=== PATIENT | female | born 1945 | race Hispanic/Latino ===

== ENCOUNTER 2021-11-17 06:49 | Inpatient (IN) | payer MEDICARE ==
[2021-11-17] MEDS ORDERED: KETOROLAC 30 MG/1 ML INJ IV ONE (07:18)
--- NOTE | 2021-11-17 07:32 | Emergency Department Report ---
ED Abdominal Pain HPI - General Stated Complaint: NAUSEA/VOMITING PUI?: No Time Seen by Provider: 11/17/21 07:16 Source: patient, EMS, old records reviewed Mode of arrival: Stretcher Limitations: No Limitations - History of Present Illness Initial Comments: Chief complaint: Abdominal pain HPI: This is a 76-year-old female with history of small bowel obstruction, gastric ulcer, COPD, chronic back pain who presents with nausea vomiting severe abdominal pain for the last 3 days. Patient's pain is 11 out of 10 in severity. Central difficult to describe. Last bowel movement 3 days ago. Has had persistent nausea vomiting. Arrives via EMS. Patient receives care through pain management clinic. Surgical history includes hysterectomy and cholecyst ectomy. MD Complaint: abdominal pain -: Gradual, days(s) (3 days) Location: diffuse Radiation: none Migration to: no migration Severity: severe Severity scale (0 -10): 10 (11 out of 10) Quality: aching, dull Consistency: constant Improves With: nothing Worsens With: nothing Context: other (History of bowel obstruction history of peptic ulcer disease) Associated Symptoms: nausea, vomiting, constipation Treatments Prior to Arrival: other (EMS transport) - Related Data Home Medications Medication Instructions Recorded Confirmed Last Taken Oxycodone HCl/Acetaminophen 1 each PO Q6HR PRN 10/28/14 10/28/14 Unknown [Percocet 10/325 mg] Tiotropium [Spiriva] 18 mcg IH QDAY 10/28/14 10/28/14 Unknown traZODone [Desyrel] 50 mg PO QHS 10/28/14 10/28/14 Unknown Previous Rx's Medication Instructions Recorded Last Taken Type Morphine [Morphine TAB] 30 mg PO BID #30 tablet 11/01/14 Unknown Rx Oxycodone HCl/Acetaminophen 1 each PO Q6H PRN #15 tablet 11/01/14 Unknown Rx [Roxicet 5-325 mg] Pantoprazole [Protonix TAB] 40 mg PO QDAY #30 tablet 11/01/14 Unknown Rx chlordiazePOXIDE/CLIDINIUM (NF 1 cap PO AC #60 capsule 11/01/14 Unknown Rx [Librax 5-2.5 mg (Nf)] clonazePAM [KlonoPIN] 0.5 mg PO BID PRN #30 tablet 11/01/14 Unknown Rx Allergies Allergy/AdvReac Type Severity Reaction Status Date / Time prochlorperazine edisylate AdvReac Swelling Verified 11/17/21 07:25 [From Compazine] prochlorperazine maleate AdvReac Swelling Verified 11/17/21 07:25 [From Compazine] ED Review of Systems ROS: Stated complaint: NAUSEA/VOMITING Other details as noted in HPI Comment: All other systems reviewed and negative Constitutional: denies: chills, fever, malaise Respiratory: denies: cough, shortness of breath Cardiovascular: denies: chest pain Gastrointestinal: abdominal pain, nausea, vomiting, constipation Musculoskeletal: back pain ED Past Medical Hx - Past Medical History Previous Medical History?: Yes Hx COPD: Yes Additional medical history: Peptic ulcer disease, checking for hep C, domant hep B - Surgical History Past Surgical History?: Yes Hx Cholecystectomy: Yes Additional Surgical History: Hysterectomy - Family History Family history: no significant - Social History Smoking Status: Current Some Day Smoker Substance Use Type: Alcohol - Medications Home Medications: Home Medications Medication Instructions Recorded Confirmed Last Taken Type Oxycodone HCl/Acetaminophen 1 each PO Q6HR PRN 10/28/14 10/28/14 Unknown History [Percocet 10/325 mg] Tiotropium [Spiriva] 18 mcg IH QDAY 10/28/14 10/28/14 Unknown History traZODone [Desyrel] 50 mg PO QHS 10/28/14 10/28/14 Unknown History Morphine [Morphine TAB] 30 mg PO BID #30 tablet 11/01/14 Unknown Rx Oxycodone HCl/Acetaminophen 1 each PO Q6H PRN #15 tablet 11/01/14 Unknown Rx [Roxicet 5-325 mg] Pantoprazole [Protonix TAB] 40 mg PO QDAY #30 tablet 11/01/14 Unknown Rx chlordiazePOXIDE/CLIDINIUM (NF 1 cap PO AC #60 capsule 11/01/14 Unknown Rx [Librax 5-2.5 mg (Nf)] clonazePAM [KlonoPIN] 0.5 mg PO BID PRN #30 tablet 11/01/14 Unknown Rx ED Physical Exam - General Limitations: No Limitations General appearance: alert, in no apparent distress - Head Head exam: Present: atraumatic, normocephalic - Eye Eye exam: Present: normal appearance - ENT ENT exam: Present: mucous membranes moist - Neck Neck exam: Present: normal inspection, full ROM - Respiratory Respiratory exam: Present: normal lung sounds bilaterally. Absent: respiratory distress, wheezes, rales, rhonchi - Cardiovascular Cardiovascular Exam: Present: regular rate, normal rhythm, normal heart sounds. Absent: systolic murmur, diastolic murmur, rubs, gallop - GI/Abdominal GI/Abdominal exam: Present: soft, normal bowel sounds. Absent: distended, tenderness, guarding, rebound - Extremities Exam Extremities exam: Present: normal inspection - Back Exam Back exam: Present: normal inspection - Neurological Exam Neurological exam: Present: alert, oriented X3 - Psychiatric Psychiatric exam: Present: normal affect, normal mood - Skin Skin exam: Present: warm, dry, intact, normal color. Absent: rash ED Medical Decision Making - Lab Data Result diagrams: 11/17/21 07:42 11/17/21 07:35 - Radiology Data Radiology results: report reviewed Patient Name: SCOTT RIDER Gender: Female Date of : 1945 Referring Provider: MARK DOUGLAS Organization: [facility] Accession Number: [id number] Requested Date: November 17, 2021 07:17 Report Status: Final Requested Procedure: 1 Procedure Description: CT abdomen pelvis w con Modality: CT Findings Reporting MD: Micheal Dugan Dictation Time: November 17, 2021 07:51 Digital Account Manager: Not available Practical Nurse Date: CT ABDOMEN AND PELVIS WITH CONTRAST HISTORY: Abdominal Pain hx of bowel obstruction 100 ml omni 300 . COMPARISON: 10/28/2014 TECHNIQUE: Helical CT images of the abdomen and pelvis were obtained following administration of intravenous contrast. Sagittal and coronal reformatted images were reviewed. All CT scans at this location are performed using CT dose reduction for ALARA by means of automated exposure control. CONTRAST: 100 ml of Omnipaque 300 intravenous contrast administered. FINDINGS: Abdomen/pelvis: Multiple dilated loops of small bowel with large air-fluid levels are present throughout the abdomen. The terminal ileum and colon are decompressed. There is no evidence for ascites, fluid collection or free air. The gallbladder has been surgically removed. There is mild diffuse biliary prominence without obstructing lesion which is likely secondary to reservoir effect following cholecystectomy. The pancreas, spleen, adrenal glands, kidneys, vascular structures and bladder are unremarkable. Hysterectomy changes are noted. Lungs/bones: The lung bases are clear. The bony structures are osteopenic with degenerative changes in the lumbar spine. There is moderate levocurvature of the lumbar spine. IMPRESSION: Moderate to high-grade distal small bowel obstruction. Signer Name: Micheal Dugan Jr, MD Signed: 11/17/2021 7:51 AM Workstation Name: [id number] - Medical Decision Making Small Bowel Obstruction: Dr. Reyes consulted. Admitted to hospitalist service. WBC 17K Critical care attestation.: If time is entered above; I have spent that time in minutes in the direct care of this critically ill patient, excluding procedure time. ED Disposition Clinical Impression: Small bowel obstruction Disposition: ADMITTED INPATIENT Is pt being admited?: Yes Does the pt Need Aspirin: No Condition: Stable
[2021-11-17 07:53] LABS: Hematocrit 50.5 % (30.3-42.9); Hemoglobin 17.1 gm/dl (10.1-14.3); Mean Corpuscular HGB Conc 34 % (30-34); Mean Corpuscular Volume 100 fl (79-97); Platelet Count 271 K/mm3 (140-440); Red Blood Count 5.03 M/mm3 (3.65-5.03); Red Cell Distribution Width 13.2 % (13.2-15.2)
[2021-11-17 08:06] LABS: Albumin 5.3 g/dL (3.9-5); Bilirubin,Direct 0.3 mg/dL (0-0.2); Calcium 11.9 mg/dL (8.4-10.2)
[2021-11-17 08:25] LABS: Total Cells Counted 100
[2021-11-17 08:26] LABS: Basophils % (Manual) 0 % (0.0-1.8); Eosinophils % (Manual) 0 % (0.0-4.3); RBC Morphology Normal
[2021-11-17 08:27] LABS: Platelet Estimate Consistent w Auto
--- NOTE | 2021-11-17 08:56 | Cat Scan Report ---
CT ABDOMEN AND PELVIS WITH CONTRAST HISTORY: Abdominal Pain hx of bowel obstruction 100 ml omni 300 . COMPARISON: 10/28/2014 TECHNIQUE: Helical CT images of the abdomen and pelvis were obtained following administration of intr avenous contrast. Sagittal and coronal reformatted images were reviewed. [facility] using CT dose reduction for ALARA by means of automated exposure control. CONTRAST: 100 ml of Omnipaque 300 intravenous contrast administered. FINDINGS: Abdomen/pelvis: Multiple dilated loops of small bowel with large air-fluid levels are present throug hout the abdomen. The terminal ileum and colon are decompressed. There is no evidence for ascites, fl uid collection or free air. The gallbladder has been surgically removed. There is mild diffuse biliary prominence without obstruc ting lesion which is likely secondary to reservoir effect following cholecystectomy. The pancreas, sp demetrio, adrenal glands, kidneys, vascular structures and bladder are unremarkable. Hysterectomy changes are noted. Lungs/bones: The lung bases are clear. The bony structures are osteopenic with degenerative changes in the lumbar spine. There is moderate levocurvature of the lumbar spine. IMPRESSION: Moderate to high-grade distal small bowel obstruction. Signer Name: Micheal Dugan Jr, MD Signed: 11/17/2021 8:51 AM Workstation Name: [id number]
--- NOTE | 2021-11-17 09:32 | Consultation ---
History of Present Illness Consult date: 11/17/21 Reason for consult: abdominal pain - History of present illness History of present illness: This is a 76-year-old female with history of small bowel obstruction, gastric ulcer, COPD, chronic back pain who presents with nausea vomiting severe abdominal pain for the last 3 days. Patient's pain is 11 out of 10 in severity. Pain location is Central difficult to describe. Last bowel movement 3 days ago. Has had persistent nausea vomiting. Arrives via EMS. Patient receives care through pain management clinic. Surgical history includes hysterectomy and cholecystectomy. CT scan reviewed and shows entire small bowel to be distended. Colon is collapsed. stomach is distended. Medications and Allergies Allergies Allergy/AdvReac Type Severity Reaction Status Date / Time prochlorperazine edisylate AdvReac Swelling Verified 11/17/21 07:25 [From Compazine] prochlorperazine maleate AdvReac Swelling Verified 11/17/21 07:25 [From Compazine] Home Medications Medication Instructions Recorded Confirmed Last Taken Type Oxycodone HCl/Acetaminophen 1 each PO Q6HR PRN 10/28/14 11/17/21 11/15/21 12:00 History [Percocet 10/325 mg] Tiotropium [Spiriva] 18 mcg IH QDAY 10/28/14 11/17/21 11/10/21 15:00 History traZODone [Desyrel] 50 mg PO QHS 10/28/14 11/17/21 11/03/21 09:00 History Morphine [Morphine TAB] 30 mg PO BID #30 tablet 11/01/14 11/17/21 11/15/21 12:00 Rx Oxycodone HCl/Acetaminophen 1 each PO Q6H PRN #15 tablet 11/01/14 11/17/21 11/15/21 12:00 Rx [Roxicet 5-325 mg] Pantoprazole [Protonix TAB] 40 mg PO QDAY #30 tablet 11/01/14 11/17/21 11/15/21 12:00 Rx chlordiazePOXIDE/CLIDINIUM (NF 1 cap PO AC #60 capsule 11/01/14 11/17/21 11/15/21 12:00 Rx [Librax 5-2.5 mg (Nf)] clonazePAM [KlonoPIN] 0.5 mg PO BID PRN #30 tablet 11/01/14 11/17/21 11/17/21 12:00 Rx Promethazine [Phenergan] 25 mg PO Q6HR PRN 11/17/21 11/17/21 11/14/21 18:00 History Exam - General physical appearance Positive: well developed, no distress - Neck Positive: no masses, no bruits, trachea midline - Respiratory Positive: normal expansion - Cardiovascular Rhythm: regular - Extremities Extremities: no ischemia, No edema - Breasts Breasts: normal - Abdomen Abdomen: Present: soft, tender. Absent: distended, masses, rebound Hernia: none - Neurologic Neurologic: alert and oriented to time, place and person, motor strength and sensation are grossly intact, CN II-XII intact Results - Labs 11/18/21 07:18 11/18/21 07:18 Abnormal lab results 11/17/21 11/17/21 Range/Units 07:35 07:42 WBC 17.2 H (4.5-11.0) K/mm3 Hgb 17.1 H (10.1-14.3) gm/dl Hct 50.5 H (30.3-42.9) % MCV 100 H (79-97) fl MCH 34 H (28-32) pg Seg Neuts % (Manual) 93.0 H (40.0-70.0) % Lymphocytes % (Manual) 5.0 L (13.4-35.0) % Seg Neutrophils # Man 16.0 H (1.8-7.7) K/mm3 Lymphocytes # (Manual) 0.9 L (1.2-5.4) K/mm3 Sodium 136 L (137-145) mmol/L Chloride 94.7 L (98-107) mmol/L Glucose 174 H (65-100) mg/dL Calcium 11.9 H (8.4-10.2) mg/dL Direct Bilirubin 0.3 H (0-0.2) mg/dL Total Protein 8.9 H (6.3-8.2) g/dL Albumin 5.3 H (3.9-5) g/dL Diabetes panel 11/17/21 Range/Units 07:35 Sodium 136 L (137-145) mmol/L Potassium 3.6 (3.6-5.0) mmol/L Chloride 94.7 L (98-107) mmol/L Carbon Dioxide 23 (22-30) mmol/L BUN 17 (7-17) mg/dL Creatinine 1.1 (0.6-1.2) mg/dL Glucose 174 H (65-100) mg/dL Calcium 11.9 H (8.4-10.2) mg/dL AST 15 (5-40) units/L ALT 8 (7-56) units/L Alkaline Phosphatase 52 (35-129) units/L Total Protein 8.9 H (6.3-8.2) g/dL Albumin 5.3 H (3.9-5) g/dL Calcium panel 11/17/21 Range/Units 07:35 Calcium 11.9 H (8.4-10.2) mg/dL Albumin 5.3 H (3.9-5) g/dL Pituitary panel 11/17/21 Range/Units 07:35 Sodium 136 L (137-145) mmol/L Potassium 3.6 (3.6-5.0) mmol/L Chloride 94.7 L (98-107) mmol/L Carbon Dioxide 23 (22-30) mmol/L BUN 17 (7-17) mg/dL Creatinine 1.1 (0.6-1.2) mg/dL Glucose 174 H (65-100) mg/dL Calcium 11.9 H (8.4-10.2) mg/dL Adrenal panel 11/17/21 Range/Units 07:35 Sodium 136 L (137-145) mmol/L Potassium 3.6 (3.6-5.0) mmol/L Chloride 94.7 L (98-107) mmol/L Carbon Dioxide 23 (22-30) mmol/L BUN 17 (7-17) mg/dL Creatinine 1.1 (0.6-1.2) mg/dL Glucose 174 H (65-100) mg/dL Calcium 11.9 H (8.4-10.2) mg/dL Total Bilirubin 1.00 (0.1-1.2) mg/dL AST 15 (5-40) units/L ALT 8 (7-56) units/L Alkaline Phosphatase 52 (35-129) units/L Total Protein 8.9 H (6.3-8.2) g/dL Albumin 5.3 H (3.9-5) g/dL Assessment and Plan CT abdo with small bowel obstruction. Pt with prior surgrey. Patient notes that hysterectomy was complicated with a bowel injury. She also notes that she has had several prior admissions for bowel obstruction secondary to adhesions manag ed conservatively. NG tube was not able be replaced through the night. Patient continues to have l ack of flatus lack of BM. Would continue to try to replace the NG. Place NG, IVF, serial examines. thanks for your consultation.
[2021-11-17] MEDS ORDERED: MORPHINE 4 MG/1 ML INJ IV ONE (09:37)
--- NOTE | 2021-11-17 11:44 | History and Physical Report ---
History of Present Illness Date of examination: 11/17/21 Date of admission: 11/17/2021 Chief complaint: Abdominal pain with nausea and vomiting History of present illness: The patient is a 76-year-old female past medical history of small bowel obstruction, gastric ulcer, COPD, and chronic back pain (follows with pain management clinic) who presented with nausea, vomiting, and severe abdominal pain that is progressed over the previous 3 days. The patient currently describes her abdominal pain as 11/10 in severity. The patient describes her last bowel movement being approximately 3 days ago. The patient was found to be hemodynamically stable and on room air. Further lab results revealed leukocytosis of 17.[address] abdomen and pelvis with contrast revealed a moderate to high-grade distal small bowel obstruction. General surgery was consulted for further management. The patient is being admitted to the medicine service for management of small bowel obstruction. Past History Past Medical History: COPD, other (Gastric ulcer; history of small bowel obstruction; chronic pain) Past Surgical History: cholecystectomy Family history: hypertension Medications and Allergies Allergies Allergy/AdvReac Type Severity Reaction Status Date / Time prochlorperazine edisylate AdvReac Swelling Verified 11/17/21 07:25 [From Compazine] prochlorperazine maleate AdvReac Swelling Verified 11/17/21 07:25 [From Compazine] Home Medications Medication Instructions Recorded Confirmed Last Taken Type Oxycodone HCl/Acetaminophen 1 each PO Q6HR PRN 10/28/14 11/17/21 11/15/21 12:00 History [Percocet 10/325 mg] Tiotropium [Spiriva] 18 mcg IH QDAY 10/28/14 11/17/21 11/10/21 15:00 History traZODone [Desyrel] 50 mg PO QHS 10/28/14 11/17/21 11/03/21 09:00 History Morphine [Morphine TAB] 30 mg PO BID #30 tablet 11/01/14 11/17/21 11/15/21 12:00 Rx Oxycodone HCl/Acetaminophen 1 each PO Q6H PRN #15 tablet 11/01/14 11/17/21 11/15/21 12:00 Rx [Roxicet 5-325 mg] Pantoprazole [Protonix TAB] 40 mg PO QDAY #30 tablet 11/01/14 11/17/21 11/15/21 12:00 Rx chlordiazePOXIDE/CLIDINIUM (NF 1 cap PO AC #60 capsule 11/01/14 11/17/21 11/15/21 12:00 Rx [Librax 5-2.5 mg (Nf)] clonazePAM [KlonoPIN] 0.5 mg PO BID PRN #30 tablet 11/01/14 11/17/21 11/17/21 12:00 Rx Promethazine [Phenergan] 25 mg PO Q6HR PRN 11/17/21 11/17/21 11/14/21 18:00 History Exam - Constitutional Vitals: Temp Pulse Resp BP Pulse Ox 96 H 14 171/81 96 11/17/21 10:07 11/17/21 10:07 11/17/21 10:07 11/17/21 10:07 General appearance: Present: severe distress, well-nourished - EENT Eyes: Present: PERRL, EOM intact ENT: hearing intact, clear oral mucosa, edentulous - Neck Neck: Present: supple, normal ROM - Respiratory Respiratory effort: normal Respiratory: bilateral: CTA - Cardiovascular Rhythm: regular Heart Sounds: Present: S1 & S2 - Extremities Extremities: no ischemia, pulses intact, pulses symmetrical, No edema, normal temperature, normal color, Full ROM Peripheral Pulses: within normal limits - Abdominal General gastrointestinal: Present: soft, tender, non-distended, hypoactive bowel sounds Localized gastrointestinal: tender: RLQ, suprapubic Female genitourinary: Present: deferred - Rectal Rectal Exam: deferred - Integumentary Integumentary: Present: clear, warm, dry - Musculoskeletal Musculoskeletal: strength equal bilaterally - Psychiatric Psychiatric: appropriate mood/affect, cooperative - Neurologic Neurologic: CNII-XII intact, moves all extremities - Allied Health Allied health notes reviewed: nursing Results - Labs CBC & Chem 7: 11/18/21 07:18 11/18/21 07:18 Labs: Laboratory Last Values WBC 17.2 K/mm3 (4.5-11.0) H 11/17/21 07:42 RBC 5.03 M/mm3 (3.65-5.03) 11/17/21 07:42 Hgb 17.1 gm/dl (10.1-14.3) H 11/17/21 07:42 Hct 50.5 % (30.3-42.9) H 11/17/21 07:42 MCV 100 fl (79-97) H 11/17/21 07:42 MCH 34 pg (28-32) H 11/17/21 07:42 MCHC 34 % (30-34) 11/17/21 07:42 RDW 13.2 % (13.2-15.2) 11/17/21 07:42 Plt Count 271 K/mm3 (140-440) 11/17/21 07:42 Add Manual Diff Complete 11/17/21 07:42 Total Counted 100 11/17/21 07:42 Seg Neutrophils % [place] Loader 11/17/21 07:42 Seg Neuts % (Manual) 93.0 % (40.0-70.0) H 11/17/21 07:42 Band Neutrophils % 0 % 11/17/21 07:42 Lymphocytes % (Manual) 5.0 % (13.4-35.0) L 11/17/21 07:42 Reactive Lymphs % (Man) 0 % 11/17/21 07:42 Monocytes % (Manual) 2.0 % (0.0-7.3) 11/17/21 07:42 Eosinophils % (Manual) 0 % (0.0-4.3) 11/17/21 07:42 Basophils % (Manual) 0 % (0.0-1.8) 11/17/21 07:42 Metamyelocytes % 0 % 11/17/21 07:42 Myelocytes % 0 % 11/17/21 07:42 Promyelocytes % 0 % 11/17/21 07:42 Blast Cells % 0 % 11/17/21 07:42 Nucleated RBC % Not Reportable 11/17/21 07:42 Seg Neutrophils # Man 16.0 K/mm3 (1.8-7.7) H 11/17/21 07:42 Band Neutrophils # 0.0 K/mm3 11/17/21 07:42 Lymphocytes # (Manual) 0.9 K/mm3 (1.2-5.4) L 11/17/21 07:42 Abs React Lymphs (Man) 0.0 K/mm3 11/17/21 07:42 Monocytes # (Manual) 0.3 K/mm3 (0.0-0.8) 11/17/21 07:42 Eosinophils # (Manual) 0.0 K/mm3 (0.0-0.4) 11/17/21 07:42 Basophils # (Manual) 0.0 K/mm3 (0.0-0.1) 11/17/21 07:42 Metamyelocytes # 0.0 K/mm3 11/17/21 07:42 Myelocytes # 0.0 K/mm3 11/17/21 07:42 Promyelocytes # 0.0 K/mm3 11/17/21 07:42 Blast Cells # 0.0 K/mm3 11/17/21 07:42 WBC Morphology Not Reportable 11/17/21 07:42 Hypersegmented Neuts Not Reportable 11/17/21 07:42 Hyposegmented Neuts Not Reportable 11/17/21 07:42 Hypogranular Neuts Not Reportable 11/17/21 07:42 Smudge Cells Not Reportable 11/17/21 07:42 Toxic Granulation Not Reportable 11/17/21 07:42 Toxic Vacuolation Not Reportable 11/17/21 07:42 Dohle Bodies Not Reportable 11/17/21 07:42 Pelger-Huet Anomaly Not Reportable 11/17/21 07:42 Rekha Rods Not Reportable 11/17/21 07:42 Platelet Estimate Consistent w auto 11/17/21 07:42 Clumped Platelets Not Reportable 11/17/21 07:42 Plt Clumps, EDTA Not Reportable 11/17/21 07:42 Large Platelets Not Reportable 11/17/21 07:42 Giant Platelets Not Reportable 11/17/21 07:42 Platelet Satelliting Not Reportable 11/17/21 07:42 Plt Morphology Comment Not Reportable 11/17/21 07:42 RBC Morphology Normal 11/17/21 07:42 Dimorphic RBCs Not Reportable 11/17/21 07:42 Polychromasia Not Reportable 11/17/21 07:42 Hypochromasia Not Reportable 11/17/21 07:42 Poikilocytosis Not Reportable 11/17/21 07:42 Anisocytosis Not Reportable 11/17/21 07:42 Microcytosis Not Reportable 11/17/21 07:42 Macrocytosis Not Reportable 11/17/21 07:42 Spherocytes Not Reportable 11/17/21 07:42 Pappenheimer Bodies Not Reportable 11/17/21 07:42 Sickle Cells Not Reportable 11/17/21 07:42 Target Cells Not Reportable 11/17/21 07:42 Tear Drop Cells Not Reportable 11/17/21 07:42 Ovalocytes Not Reportable 11/17/21 07:42 Helmet Cells Not Reportable 11/17/21 07:42 Maza-[place] Bodies Not Reportable 11/17/21 07:42 [place] Rings Not Reportable 11/17/21 07:42 Boutte Cells Not Reportable 11/17/21 07:42 Bite Cells Not Reportable 11/17/21 07:42 Crenated Cell Not Reportable 11/17/21 07:42 Elliptocytes Not Reportable 11/17/21 07:42 Acanthocytes (Spur) Not Reportable 11/17/21 07:42 Rouleaux Not Reportable 11/17/21 07:42 Hemoglobin C Crystals Not Reportable 11/17/21 07:42 Schistocytes Not Reportable 11/17/21 07:42 Malaria parasites Not Reportable 11/17/21 07:42 Behzad Bodies Not Reportable 11/17/21 07:42 Hem Pathologist Commnt No 11/17/21 07:42 Sodium 136 mmol/L (137-145) L 11/17/21 07:35 Potassium 3.6 mmol/L (3.6-5.0) 11/17/21 07:35 Chloride 94.7 mmol/L (98-107) L 11/17/21 07:35 Carbon Dioxide 23 mmol/L (22-30) 11/17/21 07:35 Anion Gap 22 mmol/L 11/17/21 07:35 BUN 17 mg/dL (7-17) 11/17/21 07:35 Creatinine 1.1 mg/dL (0.6-1.2) 11/17/21 07:35 Estimated GFR 48 ml/min 11/17/21 07:35 BUN/Creatinine Ratio 15 % 11/17/21 07:35 Glucose 174 mg/dL (65-100) H 11/17/21 07:35 Calcium 11.9 mg/dL (8.4-10.2) H 11/17/21 07:35 Total Bilirubin 1.00 mg/dL (0.1-1.2) 11/17/21 07:35 Direct Bilirubin 0.3 mg/dL (0-0.2) H 11/17/21 07:35 Indirect Bilirubin 0.7 mg/dL 11/17/21 07:35 AST 15 units/L (5-40) 11/17/21 07:35 ALT 8 units/L (7-56) 11/17/21 07:35 Alkaline Phosphatase 52 units/L (35-129) 11/17/21 07:35 Total Protein 8.9 g/dL (6.3-8.2) H 11/17/21 07:35 Albumin 5.3 g/dL (3.9-5) H 11/17/21 07:35 Albumin/Globulin Ratio 1.5 % 11/17/21 07:35 Lipase 13 units/L (13-60) 11/17/21 07:35 Assessment and Plan Assessment and plan: The patient is a 76-year-old female past medical history of small bowel obstruction, gastric ulcer, COPD, and chronic back pain (follows with pain management clinic) who presented with nausea, vomiting, and severe abdominal pain that is progressed over the previous 3 days. The patient currently describes her abdominal pain as 11/10 in severity. The patient describes her last bowel movement being approximately 3 days ago. The patient was found to be hemodynamically stable and on room air. Further lab results revealed leukocytosis of 17.[address] abdomen and pelvis with contrast revealed a moderate to high-grade distal small bowel obstruction. General surgery was consulted for further management. The patient is being admitted to the medicine service for management of small bowel obstruction. #Distal small bowel obstruction #SIRS #Leukocytosis Heart rate 96, WBC 17.2 CT abdomen/pelvis with contrast revealing moderate to high-grade distal SBO General surgery consulted; appreciate recs Ordering NG tube placement with low intermittent wall suction, IV fluid resuscitation, and serial KUBs. The patient will be n.p.o. until resolution of small bowel obstruction. Continue to monitor #History of gastric ulcer Continue IV PPI; patient normally takes Protonix at home #COPD Continue DuoNebs and albuterol nebs as needed #Hypercalcemia Calcium 11.9 Likely secondary to decreased volume status and possible hemo-concentration Continue IV fluid resuscitation. Monitor with repeat labs. #Advanced care planning -Disease education conducted, care plan discussed, diagnoses discussed, prognosis discussed, and patient acknowledges understanding with care plan -Time: +30 min VTE prophylaxis?: Chemical Plan of care discussed with patient/family: Yes
[2021-11-17] MEDS: MORPHINE 2 MG/1 ML INJ IV PRN ×2 (13:43→21:43)
[2021-11-17] MEDS: IPRATROPIUM/ALBUTEROL SULFATE 3 ML AMPUL.NEB IH SCH ×2 (14:24→20:59)
[2021-11-17] MEDS: ACETAMINOPHEN 325 MG TAB PO PRN (21:43)
[2021-11-17] MEDS: PANTOPRAZOLE 40 MG INJ IV SCH (21:44)
[2021-11-17] MEDS: HEPARIN 5,000 UNIT/1 ML VIAL SUB-Q SCH (21:46)
[2021-11-18] MEDS: D5W/0.9% NACL 1,000 ML IV SCH ×2 (03:46→16:19)
[2021-11-18 07:36] LABS: Basophils % (Auto) 0.3 % (0.0-1.8); Eosinophils % (Auto) 0.3 % (0.0-4.3); Hematocrit 40.9 % (30.3-42.9); Hemoglobin 14.3 gm/dl (10.1-14.3); Lymphocytes # (Auto) 1.4 K/mm3 (1.2-5.4); Mean Corpuscular HGB Conc 35 % (30-34); Mean Corpuscular Volume 99 fl (79-97); Monocytes # (Auto) 0.8 K/mm3 (0.0-0.8); Monocytes % (Auto) 8.3 % (0.0-7.3); Platelet Count 199 K/mm3 (140-440); Red Blood Count 4.12 M/mm3 (3.65-5.03); Red Cell Distribution Width 13.5 % (13.2-15.2)
[2021-11-18 07:59] LABS: BUN/Creatinine Ratio 27; Blood Urea Nitrogen 24 mg/dL (7-17); Calcium 9.2 mg/dL (8.4-10.2); Hemolysis Index 9
[2021-11-18] MEDS: HEPARIN 5,000 UNIT/1 ML VIAL SUB-Q SCH ×2 (09:08→21:21)
[2021-11-18] MEDS: PANTOPRAZOLE 40 MG INJ IV SCH ×2 (09:09→21:20)
[2021-11-18] MEDS: MORPHINE 2 MG/1 ML INJ IV PRN ×2 (09:12→16:25)
--- NOTE | 2021-11-18 09:16 | XRay Report ---
ABDOMEN 1 VIEW(S) INDICATION / CLINICAL INFORMATION: Evaluate SBO progress. COMPARISON: CT abdomen pelvis 11/17/2021 FINDINGS: TUBES / LINES: None. BOWEL GAS PATTERN: Dilated small bowel loops throughout the abdomen appears similar to the shellfish checker film of the CT abdomen and pelvis performed yesterday. FREE AIR / EXTRALUMINAL GAS: None seen. ADDITIONAL FINDINGS: No significant additional findings. IMPRESSION: No significant interval change in the small bowel obstruction pattern. Signer Name: Micheal Dugan Jr, MD Signed: 11/18/2021 9:12 AM Workstation Name: [id number]
[2021-11-18] MEDS: IPRATROPIUM/ALBUTEROL SULFATE 3 ML AMPUL.NEB IH SCH ×2 (09:43→19:22)
[2021-11-18] MEDS ORDERED: TIOTROPIUM 18 MCG CAP INHALATION IH SCH (10:00)
[2021-11-18] MEDS: ACETAMINOPHEN 325 MG TAB PO PRN (12:06)
--- NOTE | 2021-11-18 13:56 | Progress Note ---
Assessment and Plan Assessment and plan: The patient is a 76-year-old female past medical history of small bowel obstruction, gastric ulcer, COPD, and chronic back pain (follows with pain management clinic) who presented with nausea, vomiting, and severe abdominal pain that is progressed over the previous 3 days. The patient currently describes her abdominal pain as 11/10 in severity. The patient describes her last bowel movement being approximately 3 days ago. The patient was found to be hemodynamically stable and on room air. Further lab results revealed leukocytosis of 17.[address] abdomen and pelvis with contrast revealed a moderate to high-grade distal small bowel obstruction. General surgery was consulted for further management. The patient is being admitted to the medicine service for management of small bowel obstruction. #Distal small bowel obstruction #SIRSresolved #Leukocytosisresolved Heart rate 96, WBC 17.2 CT abdomen/pelvis with contrast revealing moderate to high-grade distal SBO General surgery consulted; appreciate recs Continue IV fluid resuscitation and serial KUBs. Chart documents patient refusing NG tube. Patient will be n.p.o. until resolution of small bowel obstruction. Continue to monitor #History of gastric ulcer Continue IV PPI; patient normally takes Protonix at home #COPD Continue DuoNebs and albuterol nebs as needed #Hypercalcemia Calcium 11.9 Likely secondary to decreased volume status and possible hemo-concentration Continue IV fluid resuscitation. Monitor with repeat labs. #Advanced care planning -Disease education conducted, care plan discussed, diagnoses discussed, prognosis discussed, and patient acknowledges understanding with care plan -Time: +30 min Disposition Plan: Continue medical management Total Time Spent with Patient (Minutes): 30 minutes History Interval history: No acute events overnight. Hospitalist Physical - Constitutional Vitals: Temp Pulse Resp BP Pulse Ox 98.6 F 94 H 18 163/83 93 11/18/21 12:36 11/18/21 12:36 11/18/21 12:36 11/18/21 12:36 11/18/21 12:36 General appearance: Present: mild distress, well-nourished - EENT Eyes: Present: PERRL, EOM intact ENT: hearing intact, clear oral mucosa, edentulous - Neck Neck: Present: supple, normal ROM - Respiratory Respiratory effort: normal Respiratory: bilateral: CTA - Cardiovascular Rhythm: regular Heart Sounds: Present: S1 & S2 - Extremities Extremities: no ischemia, pulses intact, pulses symmetrical, No edema, normal temperature, normal color Peripheral Pulses: within normal limits - Abdominal General gastrointestinal: soft, tender, non-distended, hypoactive bowel sounds Localized gastrointestinal: tender: RLQ, suprapubic - Integumentary Integumentary: Present: clear, warm, dry - Psychiatric Psychiatric: appropriate mood/affect, cooperative - Neurologic Neurologic: CNII-XII intact - Allied Health Allied health notes reviewed: nursing Results - Labs CBC & Chem 7: 11/18/21 07:18 11/18/21 07:18 Labs: Laboratory Last Values WBC 9.6 K/mm3 (4.5-11.0) 11/18/21 07:18 RBC 4.12 M/mm3 (3.65-5.03) 11/18/21 07:18 Hgb 14.3 gm/dl (10.1-14.3) 11/18/21 07:18 Hct 40.9 % (30.3-42.9) D 11/18/21 07:18 MCV 99 fl (79-97) H 11/18/21 07:18 MCH 35 pg (28-32) H 11/18/21 07:18 MCHC 35 % (30-34) H 11/18/21 07:18 RDW 13.5 % (13.2-15.2) 11/18/21 07:18 Plt Count 199 K/mm3 (140-440) 11/18/21 07:18 Lymph % (Auto) 15.0 % (13.4-35.0) 11/18/21 07:18 [place] % (Auto) 8.3 % (0.0-7.3) H 11/18/21 07:18 Eos % (Auto) 0.3 % (0.0-4.3) 11/18/21 07:18 Baso % (Auto) 0.3 % (0.0-1.8) 11/18/21 07:18 Lymph # (Auto) 1.4 K/mm3 (1.2-5.4) 11/18/21 07:18 [place] # (Auto) 0.8 K/mm3 (0.0-0.8) 11/18/21 07:18 Eos # (Auto) 0.0 K/mm3 (0.0-0.4) 11/18/21 07:18 Baso # (Auto) 0.0 K/mm3 (0.0-0.1) 11/18/21 07:18 Add Manual Diff Complete 11/17/21 07:42 Total Counted 100 11/17/21 07:42 Seg Neutrophils % 76.1 % (40.0-70.0) H 11/18/21 07:18 Seg Neuts % (Manual) 93.0 % (40.0-70.0) H 11/17/21 07:42 Band Neutrophils % 0 % 11/17/21 07:42 Lymphocytes % (Manual) 5.0 % (13.4-35.0) L 11/17/21 07:42 Reactive Lymphs % (Man) 0 % 11/17/21 07:42 Monocytes % (Manual) 2.0 % (0.0-7.3) 11/17/21 07:42 Eosinophils % (Manual) 0 % (0.0-4.3) 11/17/21 07:42 Basophils % (Manual) 0 % (0.0-1.8) 11/17/21 07:42 Metamyelocytes % 0 % 11/17/21 07:42 Myelocytes % 0 % 11/17/21 07:42 Promyelocytes % 0 % 11/17/21 07:42 Blast Cells % 0 % 11/17/21 07:42 Nucleated RBC % Not Reportable 11/17/21 07:42 Seg Neutrophils # 7.3 K/mm3 (1.8-7.7) 11/18/21 07:18 Seg Neutrophils # Man 16.0 K/mm3 (1.8-7.7) H 11/17/21 07:42 Band Neutrophils # 0.0 K/mm3 11/17/21 07:42 Lymphocytes # (Manual) 0.9 K/mm3 (1.2-5.4) L 11/17/21 07:42 Abs React Lymphs (Man) 0.0 K/mm3 11/17/21 07:42 Monocytes # (Manual) 0.3 K/mm3 (0.0-0.8) 11/17/21 07:42 Eosinophils # (Manual) 0.0 K/mm3 (0.0-0.4) 11/17/21 07:42 Basophils # (Manual) 0.0 K/mm3 (0.0-0.1) 11/17/21 07:42 Metamyelocytes # 0.0 K/mm3 11/17/21 07:42 Myelocytes # 0.0 K/mm3 11/17/21 07:42 Promyelocytes # 0.0 K/mm3 11/17/21 07:42 Blast Cells # 0.0 K/mm3 11/17/21 07:42 WBC Morphology Not Reportable 11/17/21 07:42 Hypersegmented Neuts Not Reportable 11/17/21 07:42 Hyposegmented Neuts Not Reportable 11/17/21 07:42 Hypogranular Neuts Not Reportable 11/17/21 07:42 Smudge Cells Not Reportable 11/17/21 07:42 Toxic Granulation Not Reportable 11/17/21 07:42 Toxic Vacuolation Not Reportable 11/17/21 07:42 Dohle Bodies Not Reportable 11/17/21 07:42 Pelger-Huet Anomaly Not Reportable 11/17/21 07:42 Rekha Rods Not Reportable 11/17/21 07:42 Platelet Estimate Consistent w auto 11/17/21 07:42 Clumped Platelets Not Reportable 11/17/21 07:42 Plt Clumps, EDTA Not Reportable 11/17/21 07:42 Large Platelets Not Reportable 11/17/21 07:42 Giant Platelets Not Reportable 11/17/21 07:42 Platelet Satelliting Not Reportable 11/17/21 07:42 Plt Morphology Comment Not Reportable 11/17/21 07:42 RBC Morphology Normal 11/17/21 07:42 Dimorphic RBCs Not Reportable 11/17/21 07:42 Polychromasia Not Reportable 11/17/21 07:42 Hypochromasia Not Reportable 11/17/21 07:42 Poikilocytosis Not Reportable 11/17/21 07:42 Anisocytosis Not Reportable 11/17/21 07:42 Microcytosis Not Reportable 11/17/21 07:42 Macrocytosis Not Reportable 11/17/21 07:42 Spherocytes Not Reportable 11/17/21 07:42 Pappenheimer Bodies Not Reportable 11/17/21 07:42 Sickle Cells Not Reportable 11/17/21 07:42 Target Cells Not Reportable 11/17/21 07:42 Tear Drop Cells Not Reportable 11/17/21 07:42 Ovalocytes Not Reportable 11/17/21 07:42 Helmet Cells Not Reportable 11/17/21 07:42 [place] Bodies Not Reportable 11/17/21 07:42 [place] Rings Not Reportable 11/17/21 07:42 [place] Cells Not Reportable 11/17/21 07:42 Bite Cells Not Reportable 11/17/21 07:42 Crenated Cell Not Reportable 11/17/21 07:42 Elliptocytes Not Reportable 11/17/21 07:42 Acanthocytes (Spur) Not Reportable 11/17/21 07:42 Rouleaux Not Reportable 11/17/21 07:42 Hemoglobin C Crystals Not Reportable 11/17/21 07:42 Schistocytes Not Reportable 11/17/21 07:42 Malaria parasites Not Reportable 11/17/21 07:42 Behzad Bodies Not Reportable 11/17/21 07:42 Hem Pathologist Commnt No 11/17/21 07:42 Sodium 136 mmol/L (137-145) L 11/18/21 07:18 Potassium 3.6 mmol/L (3.6-5.0) 11/18/21 07:18 Chloride 100.1 mmol/L (98-107) 11/18/21 07:18 Carbon Dioxide 22 mmol/L (22-30) 11/18/21 07:18 Anion Gap 18 mmol/L 11/18/21 07:18 BUN 24 mg/dL (7-17) H 11/18/21 07:18 Creatinine 0.9 mg/dL (0.6-1.2) 11/18/21 07:18 Estimated GFR > 60 ml/min 11/18/21 07:18 BUN/Creatinine Ratio 27 % 11/18/21 07:18 Glucose 142 mg/dL (65-100) H 11/18/21 07:18 Calcium 9.2 mg/dL (8.4-10.2) D 11/18/21 07:18 Total Bilirubin 1.00 mg/dL (0.1-1.2) 11/17/21 07:35 Direct Bilirubin 0.3 mg/dL (0-0.2) H 11/17/21 07:35 Indirect Bilirubin 0.7 mg/dL 11/17/21 07:35 AST 15 units/L (5-40) 11/17/21 07:35 ALT 8 units/L (7-56) 11/17/21 07:35 Alkaline Phosphatase 52 units/L (35-129) 11/17/21 07:35 Total Protein 8.9 g/dL (6.3-8.2) H 11/17/21 07:35 Albumin 5.3 g/dL (3.9-5) H 11/17/21 07:35 Albumin/Globulin Ratio 1.5 % 11/17/21 07:35 Lipase 13 units/L (13-60) 11/17/21 07:35 [place]/IV: Voiding Method Toilet Active Medications - Current Medications Current Medications: Generic Name Dose Route Start Last Admin Trade Name Freq PRN Reason Stop Dose Admin Acetaminophen 650 mg 11/17/21 11:44 11/18/21 12:06 Acetaminophen 325 Mg Tab PO 650 mg Q4H PRN Administration Pain MILD(1-3)/Fever >100.5/CRUZ Albuterol/Ipratropium 1 ampul 11/18/21 20:00 Ipratropium/Albuterol Sulfate 3 Ml Ampul.Neb IH BIDRT EMILY Heparin Sodium (Porcine) 5,000 unit 11/17/21 22:00 11/18/21 09:08 Heparin 5,000 Unit/1 Ml Vial SUB-Q 5,000 unit BID EMILY Administration Hydromorphone HCl 0.5 mg 11/17/21 11:44 Hydromorphone 1 Mg/1 Ml Inj IV Q3H PRN Pain , Severe (7-10) Dextrose/Sodium Chloride 1,000 mls @ 75 mls/hr 11/17/21 12:00 11/18/21 03:46 D5ns IV 75 mls/hr DIRECT EMILY Administration Morphine Sulfate 2 mg 11/17/21 11:44 11/18/21 09:12 Morphine 2 Mg/1 Ml Inj IV 2 mg Q6H PRN Administration Pain, Moderate (4-6) Ondansetron HCl 4 mg 11/17/21 11:44 Ondansetron 4 Mg/2 Ml Inj IV Q8H PRN Nausea And Vomiting Pantoprazole Sodium 40 mg 11/17/21 22:00 11/18/21 09:09 Pantoprazole 40 Mg Inj IV 40 mg BID EMILY Administration Sodium Chloride 10 ml 11/17/21 12:00 11/18/21 09:23 Sodium Chloride 0.9% 10 Ml Flush Syringe IV 10 ml BID EMILY Administration Sodium Chloride 10 ml 11/17/21 11:44 Sodium Chloride 0.9% 10 Ml Flush Syringe IV PRN PRN LINE FLUSH
[2021-11-18] MEDS ORDERED: KETOROLAC 30 MG/1 ML INJ IV ONE (13:57)
[2021-11-18] MEDS: ONDANSETRON 4 MG/2 ML INJ IV PRN (21:21)
[2021-11-19] MEDS: METOPROLOL TARTRATE 5 MG/5 ML INJ IV SCH ×4 (00:54→21:24)
[2021-11-19] MEDS: MORPHINE 2 MG/1 ML INJ IV PRN ×2 (00:58→20:45)
[2021-11-19 06:27] LABS: Basophils % (Auto) 0.3 % (0.0-1.8); Eosinophils % (Auto) 0.3 % (0.0-4.3); Hematocrit 40.4 % (30.3-42.9); Lymphocytes # (Auto) 1.1 K/mm3 (1.2-5.4); Lymphocytes % (Auto) 9.9 % (13.4-35.0); Mean Corpuscular HGB Conc 35 % (30-34); Mean Corpuscular Volume 99 fl (79-97); Monocytes # (Auto) 0.8 K/mm3 (0.0-0.8); Monocytes % (Auto) 6.8 % (0.0-7.3); Platelet Count 217 K/mm3 (140-440); Red Blood Count 4.08 M/mm3 (3.65-5.03); Red Cell Distribution Width 13.1 % (13.2-15.2)
[2021-11-19 06:44] LABS: Blood Urea Nitrogen 25 mg/dL (7-17); Calcium 10.8 mg/dL (8.4-10.2); Hemolysis Index 0
[2021-11-19 06:52] LABS: BUN/Creatinine Ratio 42
--- NOTE | 2021-11-19 08:30 | Cat Scan Report ---
CT ABDOMEN AND PELVIS WITHOUT CONTRAST HISTORY: Small bowel obstruction COMPARISON: 11/17/2021 TECHNIQUE: Axial CT images were obtained through the abdomen and pelvis without IV contrast. Sagittal and coronal reformatted images. All CT scans at this location are performed using CT dose reduction for ALARA by means of automated exposure control. FINDINGS: CT ABDOMEN: Lung Bases: Clear. Liver: No significant abnormality. Biliary: Stable cholecystectomy changes. Spleen: No significant abnormality. Unenlarged. Pancreas: No significant abnormality. Adrenals: No significant abnormality. Kidneys: A few punctate calyceal stones are identified in both kidneys. No focal renal lesion, ureter al stone or hydronephrosis. Lymphatics: No lymphadenopathy. Vasculature: Mild atherosclerotic disease in the arterial structures without acute abnormality. Bowel/Peritoneum: Multiple dilated fluid-filled loops of small bowel are again noted and appear uncha nged since the previous exam. Terminal small bowel loops and colon remain decompressed. The appendix is not confidently identified. No evidence for ascites, fluid collection or free air. CT PELVIS: : The bladder is mostly empty but unremarkable. Stable hysterectomy changes. No adnexal abnormality . Osseous Structures: No acute abnormality. Osteopenia and degenerative changes in the lumbar spine. Additional Findings: None IMPRESSION: No significant interval change since the exam 2 days ago. Persistent small bowel obstruction pattern. A few punctate nonobstructing renal stones are identified on today's noncontrast exam. Signer Name: Micheal Dugan Jr, MD Signed: 11/19/2021 8:26 AM Workstation Name: [id number]
[2021-11-19] MEDS: IPRATROPIUM/ALBUTEROL SULFATE 3 ML AMPUL.NEB IH SCH ×2 (09:12→19:37)
--- NOTE | 2021-11-19 09:45 | XRay Report ---
ABDOMEN 1 VIEW(S) INDICATION / CLINICAL INFORMATION: Assess progress of distal SBO. COMPARISON: None available. FINDINGS: TUBES / LINES: None. BOWEL GAS PATTERN: No significant change is appreciated in the multiple dilated small bowel loops. FREE AIR / EXTRALUMINAL GAS: None seen. ADDITIONAL FINDINGS: No significant additional findings. IMPRESSION: No significant interval change. Signer Name: Micheal Dugan Jr, MD Signed: 11/19/2021 9:40 AM Workstation Name: [id number]
[2021-11-19] MEDS: POTASSIUM CHLORIDE 10 MEQ 10 MEQ/100 ML BAG IV SCH ×4 (11:25→15:54)
[2021-11-19] MEDS: PANTOPRAZOLE 40 MG INJ IV SCH ×2 (11:27→22:10)
[2021-11-19] MEDS: HEPARIN 5,000 UNIT/1 ML VIAL SUB-Q SCH ×2 (11:27→22:10)
[2021-11-19] MEDS ORDERED: SODIUM CHLORIDE 0.9% 500 ML 500 ML ONE (12:56)
--- NOTE | 2021-11-19 21:43 | Progress Note ---
Assessment and Plan Assessment and plan: The patient is a 76-year-old female past medical history of small bowel obstruction, gastric ulcer, COPD, and chronic back pain (follows with pain management clinic) who presented with nausea, vomiting, and severe abdominal pain that is progressed over the previous 3 days. The patient currently describes her abdominal pain as 11/10 in severity. The patient describes her last bowel movement being approximately 3 days ago. The patient was found to be hemodynamically stable and on room air. Further lab results revealed leukocytosis of 17.[address] abdomen and pelvis with contrast revealed a moderate to high-grade distal small bowel obstruction. General surgery was consulted for further management. The patient is being admitted to the medicine service for management of small bowel obstruction. #Distal small bowel obstruction #SIRSresolved #Leukocytosisresolved Heart rate 96, WBC 17.2 CT abdomen/pelvis with contrast revealing moderate to high-grade distal SBO General surgery consulted; appreciate recs Continue IV fluid resuscitation and serial KUBs. Patient now requesting NG tube placementRN was notified. Patient will be n.p.o. until resolution of small bowel obstruction. CT abdomen and pelvis (11/20/2019) revealing significant distention of small bowel without any real improvement compared to original imaging on admission. Continue to monitor #History of gastric ulcer Continue IV PPI; patient normally takes Protonix at home #COPD Continue DuoNebs and albuterol nebs as needed #Hypokalemia Potassium 3.2 Repleted. Monitor with repeat BMP in the morning. #Hypercalcemia Calcium 11.9 Likely secondary to decreased volume status and possible hemo-concentration Continue IV fluid resuscitation. Monitor with repeat labs. #Advanced care planning -Disease education conducted, care plan discussed, diagnoses discussed, prognosis discussed, and patient acknowledges understanding with care plan -Time: +30 min Disposition Plan: Continue medical management Total Time Spent with Patient (Minutes): 45 min History Interval history: No acute events overnight. Hospitalist Physical - Constitutional Vitals: Temp Pulse Resp BP Pulse Ox 98.0 F 96 H 20 166/65 95 11/19/21 20:40 11/19/21 20:40 11/19/21 20:40 11/19/21 20:40 11/19/21 20:40 General appearance: Present: mild distress, well-nourished Results - Labs CBC & Chem 7: 11/19/21 06:08 11/19/21 06:08 Labs: Laboratory Last Values WBC 11.1 K/mm3 (4.5-11.0) H 11/19/21 06:08 RBC 4.08 M/mm3 (3.65-5.03) 11/19/21 06:08 Hgb 14.0 gm/dl (10.1-14.3) 11/19/21 06:08 Hct 40.4 % (30.3-42.9) 11/19/21 06:08 MCV 99 fl (79-97) H 11/19/21 06:08 MCH 34 pg (28-32) H 11/19/21 06:08 MCHC 35 % (30-34) H 11/19/21 06:08 RDW 13.1 % (13.2-15.2) L 11/19/21 06:08 Plt Count 217 K/mm3 (140-440) 11/19/21 06:08 Lymph % (Auto) 9.9 % (13.4-35.0) L 11/19/21 06:08 [place] % (Auto) 6.8 % (0.0-7.3) 11/19/21 06:08 Eos % (Auto) 0.3 % (0.0-4.3) 11/19/21 06:08 Baso % (Auto) 0.3 % (0.0-1.8) 11/19/21 06:08 Lymph # (Auto) 1.1 K/mm3 (1.2-5.4) L 11/19/21 06:08 [place] # (Auto) 0.8 K/mm3 (0.0-0.8) 11/19/21 06:08 Eos # (Auto) 0.0 K/mm3 (0.0-0.4) 11/19/21 06:08 Baso # (Auto) 0.0 K/mm3 (0.0-0.1) 11/19/21 06:08 Add Manual Diff Complete 11/17/21 07:42 Total Counted 100 11/17/21 07:42 Seg Neutrophils % 82.7 % (40.0-70.0) H 11/19/21 06:08 Seg Neuts % (Manual) 93.0 % (40.0-70.0) H 11/17/21 07:42 Band Neutrophils % 0 % 11/17/21 07:42 Lymphocytes % (Manual) 5.0 % (13.4-35.0) L 11/17/21 07:42 Reactive Lymphs % (Man) 0 % 11/17/21 07:42 Monocytes % (Manual) 2.0 % (0.0-7.3) 11/17/21 07:42 Eosinophils % (Manual) 0 % (0.0-4.3) 11/17/21 07:42 Basophils % (Manual) 0 % (0.0-1.8) 11/17/21 07:42 Metamyelocytes % 0 % 11/17/21 07:42 Myelocytes % 0 % 11/17/21 07:42 Promyelocytes % 0 % 11/17/21 07:42 Blast Cells % 0 % 11/17/21 07:42 Nucleated RBC % Not Reportable 11/17/21 07:42 Seg Neutrophils # 9.2 K/mm3 (1.8-7.7) H 11/19/21 06:08 Seg Neutrophils # Man 16.0 K/mm3 (1.8-7.7) H 11/17/21 07:42 Band Neutrophils # 0.0 K/mm3 11/17/21 07:42 Lymphocytes # (Manual) 0.9 K/mm3 (1.2-5.4) L 11/17/21 07:42 Abs React Lymphs (Man) 0.0 K/mm3 11/17/21 07:42 Monocytes # (Manual) 0.3 K/mm3 (0.0-0.8) 11/17/21 07:42 Eosinophils # (Manual) 0.0 K/mm3 (0.0-0.4) 11/17/21 07:42 Basophils # (Manual) 0.0 K/mm3 (0.0-0.1) 11/17/21 07:42 Metamyelocytes # 0.0 K/mm3 11/17/21 07:42 Myelocytes # 0.0 K/mm3 11/17/21 07:42 Promyelocytes # 0.0 K/mm3 11/17/21 07:42 Blast Cells # 0.0 K/mm3 11/17/21 07:42 WBC Morphology Not Reportable 11/17/21 07:42 Hypersegmented Neuts Not Reportable 11/17/21 07:42 Hyposegmented Neuts Not Reportable 11/17/21 07:42 Hypogranular Neuts Not Reportable 11/17/21 07:42 Smudge Cells Not Reportable 11/17/21 07:42 Toxic Granulation Not Reportable 11/17/21 07:42 Toxic Vacuolation Not Reportable 11/17/21 07:42 Dohle Bodies Not Reportable 11/17/21 07:42 Pelger-Huet Anomaly Not Reportable 11/17/21 07:42 Rekha Rods Not Reportable 11/17/21 07:42 Platelet Estimate Consistent w auto 11/17/21 07:42 Clumped Platelets Not Reportable 11/17/21 07:42 Plt Clumps, EDTA Not Reportable 11/17/21 07:42 Large Platelets Not Reportable 11/17/21 07:42 Giant Platelets Not Reportable 11/17/21 07:42 Platelet Satelliting Not Reportable 11/17/21 07:42 Plt Morphology Comment Not Reportable 11/17/21 07:42 RBC Morphology Normal 11/17/21 07:42 Dimorphic RBCs Not Reportable 11/17/21 07:42 Polychromasia Not Reportable 11/17/21 07:42 Hypochromasia Not Reportable 11/17/21 07:42 Poikilocytosis Not Reportable 11/17/21 07:42 Anisocytosis Not Reportable 11/17/21 07:42 Microcytosis Not Reportable 11/17/21 07:42 Macrocytosis Not Reportable 11/17/21 07:42 Spherocytes Not Reportable 11/17/21 07:42 Pappenheimer Bodies Not Reportable 11/17/21 07:42 Sickle Cells Not Reportable 11/17/21 07:42 Target Cells Not Reportable 11/17/21 07:42 Tear Drop Cells Not Reportable 11/17/21 07:42 Ovalocytes Not Reportable 11/17/21 07:42 Helmet Cells Not Reportable 11/17/21 07:42 [place] Bodies Not Reportable 11/17/21 07:42 [place]win Rings Not Reportable 11/17/21 07:42 [place] Cells Not Reportable 11/17/21 07:42 Bite Cells Not Reportable 11/17/21 07:42 Crenated Cell Not Reportable 11/17/21 07:42 Elliptocytes Not Reportable 11/17/21 07:42 Acanthocytes (Spur) Not Reportable 11/17/21 07:42 Rouleaux Not Reportable 11/17/21 07:42 Hemoglobin C Crystals Not Reportable 11/17/21 07:42 Schistocytes Not Reportable 11/17/21 07:42 Malaria parasites Not Reportable 11/17/21 07:42 Behzad Bodies Not Reportable 11/17/21 07:42 Hem Pathologist Commnt No 11/17/21 07:42 Sodium 140 mmol/L (137-145) 11/19/21 06:08 Potassium 3.2 mmol/L (3.6-5.0) L 11/19/21 06:08 Chloride 106.0 mmol/L (98-107) 11/19/21 06:08 Carbon Dioxide 20 mmol/L (22-30) L 11/19/21 06:08 Anion Gap 17 mmol/L 11/19/21 06:08 BUN 25 mg/dL (7-17) H 11/19/21 06:08 Creatinine 0.6 mg/dL (0.6-1.2) 11/19/21 06:08 Estimated GFR > 60 ml/min 11/19/21 06:08 BUN/Creatinine Ratio 42 % 11/19/21 06:08 Glucose 130 mg/dL (65-100) H 11/19/21 06:08 Calcium 10.8 mg/dL (8.4-10.2) H D 11/19/21 06:08 Total Bilirubin 1.00 mg/dL (0.1-1.2) 11/17/21 07:35 Direct Bilirubin 0.3 mg/dL (0-0.2) H 11/17/21 07:35 Indirect Bilirubin 0.7 mg/dL 11/17/21 07:35 AST 15 units/L (5-40) 11/17/21 07:35 ALT 8 units/L (7-56) 11/17/21 07:35 Alkaline Phosphatase 52 units/L (35-129) 11/17/21 07:35 Total Protein 8.9 g/dL (6.3-8.2) H 11/17/21 07:35 Albumin 5.3 g/dL (3.9-5) H 11/17/21 07:35 Albumin/Globulin Ratio 1.5 % 11/17/21 07:35 Lipase 13 units/L (13-60) 11/17/21 07:35 Mccallum/IV: Voiding Method Toilet Active Medications - Current Medications Current Medications: Generic Name Dose Route Start Last Admin Trade Name Freq PRN Reason Stop Dose Admin Acetaminophen 650 mg 11/17/21 11:44 11/18/21 12:06 Acetaminophen 325 Mg Tab PO 650 mg Q4H PRN Administration Pain MILD(1-3)/Fever >100.5/CRUZ Albuterol/Ipratropium 1 ampul 11/18/21 20:00 11/19/21 19:37 Ipratropium/Albuterol Sulfate 3 Ml Ampul.Neb IH 1 ampul BIDRT EMILY Administration Heparin Sodium (Porcine) 5,000 unit 11/17/21 22:00 11/19/21 11:27 Heparin 5,000 Unit/1 Ml Vial SUB-Q 5,000 unit BID EMILY Administration Hydralazine HCl 10 mg 11/19/21 21:28 Hydralazine 20 Mg/1 Ml Inj IV Q6HR PRN Hypertension Hydromorphone HCl 0.5 mg 11/17/21 11:44 Hydromorphone 1 Mg/1 Ml Inj IV Q3H PRN Pain , Severe (7-10) Dextrose/Sodium Chloride 1,000 mls @ 100 mls/hr 11/17/21 12:00 11/18/21 16:19 D5ns IV 75 mls/hr DIRECT EMILY Administration Metoprolol Tartrate 5 mg 11/19/21 00:00 11/19/21 21:24 Metoprolol Tartrate 5 Mg/5 Ml Inj IV Not Given Q6HR EMILY Morphine Sulfate 2 mg 11/17/21 11:44 11/19/21 20:45 Morphine 2 Mg/1 Ml Inj IV 2 mg Q6H PRN Administration Pain, Moderate (4-6) Ondansetron HCl 4 mg 11/17/21 11:44 11/18/21 21:21 Ondansetron 4 Mg/2 Ml Inj IV 4 mg Q8H PRN Administration Nausea And Vomiting Pantoprazole Sodium 40 mg 11/17/21 22:00 11/19/21 11:27 Pantoprazole 40 Mg Inj IV 40 mg BID EMILY Administration Sodium Chloride 10 ml 11/17/21 12:00 11/19/21 17:40 Sodium Chloride 0.9% 10 Ml Flush Syringe IV 10 ml BID EMILY Administration Sodium Chloride 10 ml 11/17/21 11:44 Sodium Chloride 0.9% 10 Ml Flush Syringe IV PRN PRN LINE FLUSH Nutrition/Malnutrition Assess - Dietary Evaluation Nutrition/Malnutrition Findings: Nutrition Notes Start: 11/18/21 16:04 Freq: Status: Active Protocol: Document 11/18/21 16:04 JAYCOB (Rec: 11/18/21 16:35 JAYCOB [id number]) Nutrition Notes Need for Assessment generated from: MD Order,Low BMI Initial or Follow up Assessment Current Diagnosis COPD,Small Bowel Obstruction Other Pertinent Diagnosis N/V/Abdominal Pain, SIRS, Leukocytosis, Gastric Ulcer, Hyperglycemia. Current Diet NPO (since 11/17 11:45). Labs/Tests 11/18: Na 136, BUN 24, Glu 142. Pertinent Medications 11/18: D5ns 1000 ml @ 75 ml/hr , others nutritionally unremarkable. Height 5 ft 7 in Weight 52.16 kg [place] Body Weight (kg) 61.36 BMI 18.0 Weight change and time frame None reported at admission. Weight Status Underweight Subjective/Other Information RD consult for Low BMI assessment and dietary supplementation needs. Pt to remain NPO until SBO resolves, according to Progress notes. Pt refusing NG tube placement, according to RN notes. Pt has missing teeth, according to Physical Assessment History notes. Pt's Low BMI seems to correspond to a natural body composition, and not related to a sudden loss of body weight nor chronic malnutrition, since none were mentioned in the Physical Assessment History or the Progress notes. Percent of energy/protein needs met: Pt currently on NPO. Burn Absent Trauma Absent GI Symptoms Nausea,Vomiting,Other Food Allergy No Skin Integrity/Comment Assessment WNL. Minimum of two criteria No #1 Nutrition Diagnosis Altered GI function Comments: Pt to remain NPO until SBO resolves, according to Progress notes. Will reassess at F/U. Etiology Uncertain. As Evidenced by Signs and Symptoms N/V/Abdominal Pain. Is patient on ventilator? No Is Patient Ambulatory and/or Out of Bed Yes REE-([place]. Jeor-ambulatory/OOB) [ 1344.499 NUTR.MSJOOB] Kcal/Kg value to use for calculation 33 Approximate Energy Requirements Using 1721 kcal/Kg Calculation Used for Recommendations Kcal/kg Additional Notes Protein: 1-1.2 g/Kg IBW; 61-73 g/day. Fluids: 1 ml/Kcal, or as per MD. Nutrition Intervention Change Diet Order: Advance to Clear Liquids Diet as soon as SBO resolves. Add Supplement/Snack (indicate name/kcal When pertinent, start 8 fl oz /protein ) Ensure Clear; TID. Provides kCal: 720 Provides Protein (gm) 24 Goal #1 Compensate, through dietary supplementation, for possible poor or insufficient PO intake of meals during LOS. Goal #2 Maintain body weight within +/ -3% of admission body weight during LOS. Follow-Up By: 11/25/21 Additional Comments When pertinent, start monitoring food and ONS tolerance, %PO intake of meals , and BM.
[2021-11-19] MEDS: hydrALAZINE 20 MG/1 ML INJ IV PRN (21:45)
[2021-11-20 06:07] LABS: Blood Urea Nitrogen 28 mg/dL (7-17); Calcium 10.3 mg/dL (8.4-10.2); Hemolysis Index 3
[2021-11-20 06:09] LABS: BUN/Creatinine Ratio 40
--- NOTE | 2021-11-20 06:20 | Progress Note ---
Assessment and Plan CT abdo with small bowel obstruction. Pt with prior surgery. Patient notes that hysterectomy was complicated with a bowel injury. She also notes that she has had several prior admissions for bowel obstruction secondary to adhesions manag ed conservatively. NG tube was not able be replaced through the night. Patient continues to have l ack of flatus lack of BM. Would continue to try to replace the NG. Place NG, IVF, serial examines. thanks for your consultation. Subjective Date of service: 11/20/21 Patient Reports: Positive: no new complaints, flatus, no bowel movement Narrative: pt refused Ng after trying caused some bleeding. Pt with mild distension and minimal flatus. No bm. cont npo trytopass ng tube. Objective Vital Signs - 12hr 11/19/21 11/19/21 11/19/21 19:37 20:40 21:45 Temperature 98.0 F Pulse Rate 96 H 96 H Pulse Rate [ 88 Bilateral] Respiratory 20 Rate Respiratory 16 Rate [Bilateral ] Blood Pressure 166/65 Blood Pressure 166/65 [Right] O2 Sat by Pulse 95 Oximetry 11/19/21 11/20/21 11/20/21 22:55 01:00 04:09 Temperature 98.1 F 98.1 F Pulse Rate 93 H 111 H Pulse Rate [ Bilateral] Respiratory 18 20 Rate Respiratory Rate [Bilateral ] Blood Pressure 142/70 164/93 Blood Pressure [Right] O2 Sat by Pulse 96 95 97 Oximetry 11/20/21 05:58 Temperature 98.4 F Pulse Rate 99 H Pulse Rate [ Bilateral] Respiratory 18 Rate Respiratory Rate [Bilateral ] Blood Pressure Blood Pressure 158/106 [Right] O2 Sat by Pulse 96 Oximetry - Labs 11/19/21 06:08 11/20/21 05:26 Diabetes panel 11/19/21 11/20/21 Range/Units 06:08 05:26 Sodium 140 139 (137-145) mmol/L Potassium 3.2 L 3.2 L (3.6-5.0) mmol/L Chloride 106.0 102.0 (98-107) mmol/L Carbon Dioxide 20 L 21 L (22-30) mmol/L BUN 25 H 28 H (7-17) mg/dL Creatinine 0.6 0.7 (0.6-1.2) mg/dL Glucose 130 H 100 (65-100) mg/dL Calcium 10.8 H D 10.3 H (8.4-10.2) mg/dL Calcium panel 11/19/21 11/20/21 Range/Units 06:08 05:26 Calcium 10.8 H D 10.3 H (8.4-10.2) mg/dL Pituitary panel 11/19/21 11/20/21 Range/Units 06:08 05:26 Sodium 140 139 (137-145) mmol/L Potassium 3.2 L 3.2 L (3.6-5.0) mmol/L Chloride 106.0 102.0 (98-107) mmol/L Carbon Dioxide 20 L 21 L (22-30) mmol/L BUN 25 H 28 H (7-17) mg/dL Creatinine 0.6 0.7 (0.6-1.2) mg/dL Glucose 130 H 100 (65-100) mg/dL Calcium 10.8 H D 10.3 H (8.4-10.2) mg/dL Adrenal panel 11/19/21 11/20/21 Range/Units 06:08 05:26 Sodium 140 139 (137-145) mmol/L Potassium 3.2 L 3.2 L (3.6-5.0) mmol/L Chloride 106.0 102.0 (98-107) mmol/L Carbon Dioxide 20 L 21 L (22-30) mmol/L BUN 25 H 28 H (7-17) mg/dL Creatinine 0.6 0.7 (0.6-1.2) mg/dL Glucose 130 H 100 (65-100) mg/dL Calcium 10.8 H D 10.3 H (8.4-10.2) mg/dL
[2021-11-20] MEDS: METOPROLOL TARTRATE 5 MG/5 ML INJ IV SCH ×4 (06:31→17:56)
[2021-11-20] MEDS: IPRATROPIUM/ALBUTEROL SULFATE 3 ML AMPUL.NEB IH SCH ×2 (07:52→20:01)
--- NOTE | 2021-11-20 08:18 | Progress Note ---
Assessment and Plan #Distal small bowel obstruction #SIRSresolved #Leukocytosisresolved Heart rate 96, WBC 17.2 CT abdomen/pelvis with contrast revealing moderate to high-grade distal SBO Patient having stool that is going around obstruction. Continue to attempt NG tube to suction. Continue IV fluid resuscitation and serial KUBs. Patient now requesting NG tube placementRN was notified. Patient will be n.p.o. until resolution of small bowel obstruction. Continue n.p.o. status. CT abdomen and pelvis (11/20/2019) revealing significant distention of small bowel without any real improvement compared to original imaging on admission. Continue to monitor #History of gastric ulcer Continue IV PPI; patient normally takes Protonix at home #COPD Continue DuoNebs and albuterol nebs as needed Minimal wheezing. Much better. Good air entry. #Hypokalemia Potassium 3.2 Repleted. IV today with KCl. Monitor with repeat BMP in the morning. #Hypercalcemia Calcium 11.9 Likely secondary to decreased volume status and possible hemo-concentration Continue IV fluid resuscitation. Monitor with repeat labs. #Advanced care planning -Disease education conducted, care plan discussed, diagnoses discussed, prognosi s discussed, and patient acknowledges understanding with care plan -Time: +30min spent with patient and patient family. Disposition Plan: Continue medical management Subjective Date of service: 11/20/21 Principal diagnosis: Small bowel obstruction Interval history: he patient is a 76-year-old female past medical history of small bowel obstruction, gastric ulcer, COPD, and chronic back pain (follows with pain management clinic) who presented with nausea, vomiting, and severe abdominal pain that is progressed over the previous 3 days. The patient currently describes her abdominal pain as 11/10 in severity. The patient describes her last bowel movement being approximately 3 days ago. The patient was found to be hemodynamically stable and on room air. Further lab results revealed leukocytosis of 17.[address] abdomen and pelvis with contrast revealed a moderate to high-grade distal small bowel obstruction. General surgery was consulted for further management. The patient is being admitted to the medicine service for management of small bowel obstruction. 11/20/2021 patient stated she was having a bowel movement. Patient however had hypoactive bowel sounds. We did note that patient had a bowel movement it was loose watery stools. Was not consistent. Patient niece is at the bedside did speak with her. Was concerned that patient was refusing NG tube. Stated the patient was not confusing NG tube and that staff cannot pass the NG tube. Had attempt in the ED and attempt on the floor had some bleeding. Was unsuccessful. Patient however now is saying things not to have the tube placed. Patient is not in any acute pain at this particular time. Patient is somewhat lethargic. But will get up and is arousable. Family aware of prognosis and what is going on. Objective - Constitutional Vitals: Vital Signs - 12hr 11/19/21 11/19/21 11/19/21 20:40 21:45 22:55 Temperature 98.0 F 98.1 F Pulse Rate 96 H 96 H 93 H Pulse Rate [ Bilateral] Respiratory 20 18 Rate Respiratory Rate [Bilateral ] Blood Pressure 166/65 142/70 Blood Pressure 166/65 [Right] O2 Sat by Pulse 95 96 Oximetry 11/20/21 11/20/21 11/20/21 01:00 04:09 05:58 Temperature 98.1 F 98.4 F Pulse Rate 111 H 99 H Pulse Rate [ Bilateral] Respiratory 20 18 Rate Respiratory Rate [Bilateral ] Blood Pressure 164/93 Blood Pressure 158/106 [Right] O2 Sat by Pulse 95 97 96 Oximetry 11/20/21 07:52 Temperature Pulse Rate Pulse Rate [ 89 Bilateral] Respiratory Rate Respiratory 16 Rate [Bilateral ] Blood Pressure Blood Pressure [Right] O2 Sat by Pulse Oximetry General appearance: Present: cachectic, other (Anorexic appearing) - EENT Eyes: PERRL, EOM intact ENT: hearing intact - Neck Neck: supple - Respiratory Respiratory effort: normal Respiratory: bilateral: wheezing (Few wheezes) - Cardiovascular Rhythm: regular Heart Sounds: Present: S1 & S2. Absent: gallop, rub Extremities: pulses intact, No edema, normal color, Full ROM - Gastrointestinal General gastrointestinal: Present: soft, hypoactive bowel sounds, other (No longer distended. Tenderness only with deep palpation). Absent: hepatomegaly, splenomegaly - Integumentary Integumentary: clear, warm, dry - Musculoskeletal Musculoskeletal: generalized weakness - Neurologic Neurologic: moves all extremities - Psychiatric Psychiatric: memory intact, appropriate mood/affect, intact judgment & insight - Labs CBC & Chem 7: 11/19/21 06:08 11/20/21 05:26 Labs: Abnormal lab results 11/19/21 11/20/21 Range/Units 22:58 05:26 Potassium 3.2 L (3.6-5.0) mmol/L Carbon Dioxide 21 L (22-30) mmol/L BUN 28 H (7-17) mg/dL POC Glucose 121 H (70-105) mg/dL Calcium 10.3 H (8.4-10.2) mg/dL
[2021-11-20] MEDS: HEPARIN 5,000 UNIT/1 ML VIAL SUB-Q SCH ×2 (09:51→21:58)
[2021-11-20] MEDS: PANTOPRAZOLE 40 MG INJ IV SCH ×2 (09:51→21:58)
[2021-11-20] MEDS: hydrALAZINE 20 MG/1 ML INJ IV PRN (12:23)
[2021-11-20] MEDS: MORPHINE 2 MG/1 ML INJ IV PRN ×2 (14:14→21:59)
--- NOTE | 2021-11-20 14:58 | XRay Report ---
ABDOMEN 1 VIEW 11/20/2021 1:51 PM INDICATION / CLINICAL INFORMATION: NG TUBE PLACEMENT. COMPARISON: None available. FINDINGS: NG tube extends within the stomach with tip in the distal stomach Signer Name: Kieran Gallegos MD Signed: 11/20/2021 2:53 PM Workstation Name: [id number]
[2021-11-20] MEDS: HYDROmorphone 1 MG/1 ML INJ IV PRN (18:06)
[2021-11-20] MEDS ORDERED: ALBUTEROL 2.5 MG/3 ML NEBU IH PRN (21:30)
[2021-11-20] MEDS: D5W/0.9% NACL 1,000 ML IV SCH (22:06)
[2021-11-21] MEDS: METOPROLOL TARTRATE 5 MG/5 ML INJ IV SCH ×4 (00:12→18:22)
[2021-11-21] MEDS: HYDROmorphone 1 MG/1 ML INJ IV PRN ×3 (01:05→23:11)
[2021-11-21] MEDS: MORPHINE 2 MG/1 ML INJ IV PRN ×2 (03:58→17:00)
[2021-11-21] MEDS: ONDANSETRON 4 MG/2 ML INJ IV PRN ×2 (06:10→16:05)
[2021-11-21 07:13] LABS: Blood Urea Nitrogen 21 mg/dL (7-17); Calcium 9.7 mg/dL (8.4-10.2); Hemolysis Index 19
[2021-11-21 07:21] LABS: BUN/Creatinine Ratio 30
[2021-11-21] MEDS: PANTOPRAZOLE 40 MG INJ IV SCH ×2 (09:59→21:21)
[2021-11-21] MEDS: D5W/0.9% NACL 1,000 ML IV SCH ×2 (10:01→22:56)
[2021-11-21] MEDS: HEPARIN 5,000 UNIT/1 ML VIAL SUB-Q SCH ×2 (10:03→21:21)
--- NOTE | 2021-11-21 10:03 | Progress Note ---
Assessment and Plan Assessment and plan: #Distal small bowel obstruction #SIRSresolved #Leukocytosisresolved Heart rate 96, WBC 17.2 CT abdomen/pelvis with contrast revealing moderate to high-grade distal SBO Patient having stool that is going around obstruction. Continue to attempt NG tube to suction. Continue IV fluid resuscitation and serial KUBs. Patient now requesting NG tube placementRN was notified. Patient will be n.p.o. until resolution of small bowel obstruction. Continue n.p.o. status. CT abdomen and pelvis (11/20/2019) revealing significant distention of small bowel without any real improvement compared to original imaging on admission. Continue to monitor #History of gastric ulcer Continue IV PPI; patient normally takes Protonix at home #COPD Continue DuoNebs and albuterol nebs as needed Minimal wheezing. Much better. Good air entry. #Hypokalemia Potassium 2.7 Repleting. Monitor with repeat BMP in the morning. #Hypercalcemiaresolved Calcium 11.9 Likely secondary to decreased volume status and possible hemo-concentration Continue IV fluid resuscitation. Monitor with repeat labs. #Advanced care planning -Disease education conducted, care plan discussed, diagnoses discussed, prognosis discussed, and patient acknowledges understanding with care plan -Time: +30min spent with patient and patient family. Disposition Plan: Continue to monitor Total Time Spent with Patient (Minutes): 30 minutes History Interval history: No acute events overnight. Hospitalist Physical - Constitutional Vitals: Temp Pulse Resp BP Pulse Ox 98.2 F 81 18 157/78 96 11/21/21 05:23 11/21/21 06:03 11/21/21 05:23 11/21/21 06:03 11/21/21 05:23 General appearance: Present: mild distress, cachectic - EENT Eyes: Present: PERRL, EOM intact ENT: hearing intact, clear oral mucosa, edentulous - Neck Neck: Present: supple, normal ROM - Respiratory Respiratory effort: normal Respiratory: bilateral: CTA - Cardiovascular Rhythm: regular Heart Sounds: Present: S1 & S2 - Extremities Extremities: no ischemia, pulses intact, pulses symmetrical, No edema, normal temperature, normal color Peripheral Pulses: within normal limits - Abdominal General gastrointestinal: soft, tender, hypoactive bowel sounds Localized gastrointestinal: tender: diffuse - Integumentary Integumentary: Present: clear, warm, dry - Psychiatric Psychiatric: appropriate mood/affect, intact judgment & insight, memory intact, cooperative - Neurologic Neurologic: CNII-XII intact - Allied Health Allied health notes reviewed: nursing Results - Labs CBC & Chem 7: 11/19/21 06:08 11/21/21 06:22 Labs: Laboratory Last Values WBC 11.1 K/mm3 (4.5-11.0) H 11/19/21 06:08 RBC 4.08 M/mm3 (3.65-5.03) 11/19/21 06:08 Hgb 14.0 gm/dl (10.1-14.3) 11/19/21 06:08 Hct 40.4 % (30.3-42.9) 11/19/21 06:08 MCV 99 fl (79-97) H 11/19/21 06:08 MCH 34 pg (28-32) H 11/19/21 06:08 MCHC 35 % (30-34) H 11/19/21 06:08 RDW 13.1 % (13.2-15.2) L 11/19/21 06:08 Plt Count 217 K/mm3 (140-440) 11/19/21 06:08 Lymph % (Auto) 9.9 % (13.4-35.0) L 11/19/21 06:08 Coal % (Auto) 6.8 % (0.0-7.3) 11/19/21 06:08 Eos % (Auto) 0.3 % (0.0-4.3) 11/19/21 06:08 Baso % (Auto) 0.3 % (0.0-1.8) 11/19/21 06:08 Lymph # (Auto) 1.1 K/mm3 (1.2-5.4) L 11/19/21 06:08 Coal # (Auto) 0.8 K/mm3 (0.0-0.8) 11/19/21 06:08 Eos # (Auto) 0.0 K/mm3 (0.0-0.4) 11/19/21 06:08 Baso # (Auto) 0.0 K/mm3 (0.0-0.1) 11/19/21 06:08 Add Manual Diff Complete 11/17/21 07:42 Total Counted 100 11/17/21 07:42 Seg Neutrophils % 82.7 % (40.0-70.0) H 11/19/21 06:08 Seg Neuts % (Manual) 93.0 % (40.0-70.0) H 11/17/21 07:42 Band Neutrophils % 0 % 11/17/21 07:42 Lymphocytes % (Manual) 5.0 % (13.4-35.0) L 11/17/21 07:42 Reactive Lymphs % (Man) 0 % 11/17/21 07:42 Monocytes % (Manual) 2.0 % (0.0-7.3) 11/17/21 07:42 Eosinophils % (Manual) 0 % (0.0-4.3) 11/17/21 07:42 Basophils % (Manual) 0 % (0.0-1.8) 11/17/21 07:42 Metamyelocytes % 0 % 11/17/21 07:42 Myelocytes % 0 % 11/17/21 07:42 Promyelocytes % 0 % 11/17/21 07:42 Blast Cells % 0 % 11/17/21 07:42 Nucleated RBC % Not Reportable 11/17/21 07:42 Seg Neutrophils # 9.2 K/mm3 (1.8-7.7) H 11/19/21 06:08 Seg Neutrophils # Man 16.0 K/mm3 (1.8-7.7) H 11/17/21 07:42 Band Neutrophils # 0.0 K/mm3 11/17/21 07:42 Lymphocytes # (Manual) 0.9 K/mm3 (1.2-5.4) L 11/17/21 07:42 Abs React Lymphs (Man) 0.0 K/mm3 11/17/21 07:42 Monocytes # (Manual) 0.3 K/mm3 (0.0-0.8) 11/17/21 07:42 Eosinophils # (Manual) 0.0 K/mm3 (0.0-0.4) 11/17/21 07:42 Basophils # (Manual) 0.0 K/mm3 (0.0-0.1) 11/17/21 07:42 Metamyelocytes # 0.0 K/mm3 11/17/21 07:42 Myelocytes # 0.0 K/mm3 11/17/21 07:42 Promyelocytes # 0.0 K/mm3 11/17/21 07:42 Blast Cells # 0.0 K/mm3 11/17/21 07:42 WBC Morphology Not Reportable 11/17/21 07:42 Hypersegmented Neuts Not Reportable 11/17/21 07:42 Hyposegmented Neuts Not Reportable 11/17/21 07:42 Hypogranular Neuts Not Reportable 11/17/21 07:42 Smudge Cells Not Reportable 11/17/21 07:42 Toxic Granulation Not Reportable 11/17/21 07:42 Toxic Vacuolation Not Reportable 11/17/21 07:42 Dohle Bodies Not Reportable 11/17/21 07:42 Pelger-Huet Anomaly Not Reportable 11/17/21 07:42 Rekha Rods Not Reportable 11/17/21 07:42 Platelet Estimate Consistent w auto 11/17/21 07:42 Clumped Platelets Not Reportable 11/17/21 07:42 Plt Clumps, EDTA Not Reportable 11/17/21 07:42 Large Platelets Not Reportable 11/17/21 07:42 Giant Platelets Not Reportable 11/17/21 07:42 Platelet Satelliting Not Reportable 11/17/21 07:42 Plt Morphology Comment Not Reportable 11/17/21 07:42 RBC Morphology Normal 11/17/21 07:42 Dimorphic RBCs Not Reportable 11/17/21 07:42 Polychromasia Not Reportable 11/17/21 07:42 Hypochromasia Not Reportable 11/17/21 07:42 Poikilocytosis Not Reportable 11/17/21 07:42 Anisocytosis Not Reportable 11/17/21 07:42 Microcytosis Not Reportable 11/17/21 07:42 Macrocytosis Not Reportable 11/17/21 07:42 Spherocytes Not Reportable 11/17/21 07:42 Pappenheimer Bodies Not Reportable 11/17/21 07:42 Sickle Cells Not Reportable 11/17/21 07:42 Target Cells Not Reportable 11/17/21 07:42 Tear Drop Cells Not Reportable 11/17/21 07:42 Ovalocytes Not Reportable 11/17/21 07:42 Helmet Cells Not Reportable 11/17/21 07:42 [place] Bodies Not Reportable 11/17/21 07:42 [place] Rings Not Reportable 11/17/21 07:42 Mcdonald Cells Not Reportable 11/17/21 07:42 Bite Cells Not Reportable 11/17/21 07:42 Crenated Cell Not Reportable 11/17/21 07:42 Elliptocytes Not Reportable 11/17/21 07:42 Acanthocytes (Spur) Not Reportable 11/17/21 07:42 Rouleaux Not Reportable 11/17/21 07:42 Hemoglobin C Crystals Not Reportable 11/17/21 07:42 Schistocytes Not Reportable 11/17/21 07:42 Malaria parasites Not Reportable 11/17/21 07:42 Behzad Bodies Not Reportable 11/17/21 07:42 Hem Pathologist Commnt No 11/17/21 07:42 Sodium 141 mmol/L (137-145) 11/21/21 06:22 Potassium 2.7 mmol/L (3.6-5.0) L* 11/21/21 06:22 Chloride 108.9 mmol/L (98-107) H 11/21/21 06:22 Carbon Dioxide 19 mmol/L (22-30) L 11/21/21 06:22 Anion Gap 16 mmol/L 11/21/21 06:22 BUN 21 mg/dL (7-17) H 11/21/21 06:22 Creatinine 0.7 mg/dL (0.6-1.2) 11/21/21 06:22 Estimated GFR > 60 ml/min 11/21/21 06:22 BUN/Creatinine Ratio 30 % 11/21/21 06:22 Glucose 112 mg/dL (65-100) H 11/21/21 06:22 POC Glucose 121 mg/dL (70-105) H 11/19/21 22:58 Calcium 9.7 mg/dL (8.4-10.2) 11/21/21 06:22 Total Bilirubin 1.00 mg/dL (0.1-1.2) 11/17/21 07:35 Direct Bilirubin 0.3 mg/dL (0-0.2) H 11/17/21 07:35 Indirect Bilirubin 0.7 mg/dL 11/17/21 07:35 AST 15 units/L (5-40) 11/17/21 07:35 ALT 8 units/L (7-56) 11/17/21 07:35 Alkaline Phosphatase 52 units/L (35-129) 11/17/21 07:35 Total Protein 8.9 g/dL (6.3-8.2) H 11/17/21 07:35 Albumin 5.3 g/dL (3.9-5) H 11/17/21 07:35 Albumin/Globulin Ratio 1.5 % 11/17/21 07:35 Lipase 13 units/L (13-60) 11/17/21 07:35 Mccallum/IV: Voiding Method Bedside Commode Active Medications - Current Medications Current Medications: Generic Name Dose Route Start Last Admin Trade Name Freq PRN Reason Stop Dose Admin Acetaminophen 650 mg 11/17/21 11:44 11/18/21 12:06 Acetaminophen 325 Mg Tab PO 650 mg Q4H PRN Administration Pain MILD(1-3)/Fever >100.5/CRUZ Albuterol 2.5 mg 11/20/21 21:30 Albuterol 2.5 Mg/3 Ml Nebu IH Q4HRT PRN Shortness Of Breath Heparin Sodium (Porcine) 5,000 unit 11/17/21 22:00 11/20/21 21:58 Heparin 5,000 Unit/1 Ml Vial SUB-Q 5,000 unit BID EMILY Administration Hydralazine HCl 10 mg 11/19/21 21:28 11/20/21 12:23 Hydralazine 20 Mg/1 Ml Inj IV 10 mg Q6HR PRN Administration Hypertension Hydromorphone HCl 0.5 mg 11/17/21 11:44 11/21/21 01:05 Hydromorphone 1 Mg/1 Ml Inj IV 0.5 mg Q3H PRN Administration Pain , Severe (7-10) Dextrose/Sodium Chloride 1,000 mls @ 100 mls/hr 11/17/21 12:00 11/20/21 22:06 D5ns IV 75 mls/hr DIRECT EMILY Administration Potassium Chloride 10 meq in 100 mls @ 100 mls/hr 11/21/21 10:00 Kcl 10meq/100ml IV 11/21/21 13:59 Q1H EMILY Potassium Chloride 10 meq in 100 mls @ 100 mls/hr 11/21/21 16:00 Kcl 10meq/100ml IV 11/21/21 19:59 Q1H EMILY Metoprolol Tartrate 5 mg 11/19/21 00:00 11/21/21 06:03 Metoprolol Tartrate 5 Mg/5 Ml Inj IV 5 mg Q6HR EMILY Administration Morphine Sulfate 2 mg 11/17/21 11:44 11/21/21 03:58 Morphine 2 Mg/1 Ml Inj IV 2 mg Q6H PRN Administration Pain, Moderate (4-6) Ondansetron HCl 4 mg 11/17/21 11:44 11/21/21 06:10 Ondansetron 4 Mg/2 Ml Inj IV 4 mg Q8H PRN Administration Nausea And Vomiting Pantoprazole Sodium 40 mg 11/17/21 22:00 11/20/21 21:58 Pantoprazole 40 Mg Inj IV 40 mg BID EMILY Administration Sodium Chloride 10 ml 11/17/21 12:00 11/20/21 21:59 Sodium Chloride 0.9% 10 Ml Flush Syringe IV 10 ml BID EMILY Administration Sodium Chloride 10 ml 11/17/21 11:44 Sodium Chloride 0.9% 10 Ml Flush Syringe IV PRN PRN LINE FLUSH Nutrition/Malnutrition Assess - Dietary Evaluation Nutrition/Malnutrition Findings: Nutrition Notes Start: 11/18/21 16:04 Freq: Status: Active Protocol: Document 11/18/21 16:04 JAYCOB (Rec: 11/18/21 16:35 JAYCOB [email or web address]) Nutrition Notes Need for Assessment generated from: MD Order,Low BMI Initial or Follow up Assessment Current Diagnosis COPD,Small Bowel Obstruction Other Pertinent Diagnosis N/V/Abdominal Pain, SIRS, Leukocytosis, Gastric Ulcer, Hyperglycemia. Current Diet NPO (since 11/17 11:45). Labs/Tests 11/18: Na 136, BUN 24, Glu 142. Pertinent Medications 11/18: D5ns 1000 ml @ 75 ml/hr , others nutritionally unremarkable. Height 5 ft 7 in Weight 52.16 kg [place] Body Weight (kg) 61.36 BMI 18.0 Weight change and time frame None reported at admission. Weight Status Underweight Subjective/Other Information RD consult for Low BMI assessment and dietary supplementation needs. Pt to remain NPO until SBO resolves, according to Progress notes. Pt refusing NG tube placement, according to RN notes. Pt has missing teeth, according to Physical Assessment History notes. Pt's Low BMI seems to correspond to a natural body composition, and not related to a sudden loss of body weight nor chronic malnutrition, since none were mentioned in the Physical Assessment History or the Progress notes. Percent of energy/protein needs met: Pt currently on NPO. Burn Absent Trauma Absent GI Symptoms Nausea,Vomiting,Other Food Allergy No Skin Integrity/Comment Assessment WNL. Minimum of two criteria No #1 Nutrition Diagnosis Altered GI function Comments: Pt to remain NPO until SBO resolves, according to Progress notes. Will reassess at F/U. Etiology Uncertain. As Evidenced by Signs and Symptoms N/V/Abdominal Pain. Is patient on ventilator? No Is Patient Ambulatory and/or Out of Bed Yes REE-([facility]-ambulatory/OOB) [ 1344.499 NUTR.[id number]] Kcal/Kg value to use for calculation 33 Approximate Energy Requirements Using 1721 kcal/Kg Calculation Used for Recommendations Kcal/kg Additional Notes Protein: 1-1.2 g/Kg IBW; 61-73 g/day. Fluids: 1 ml/Kcal, or as per MD. Nutrition Intervention Change Diet Order: Advance to Clear Liquids Diet as soon as SBO resolves. Add Supplement/Snack (indicate name/kcal When pertinent, start 8 fl oz /protein ) Ensure Clear; TID. Provides kCal: 720 Provides Protein (gm) 24 Goal #1 Compensate, through dietary supplementation, for possible poor or insufficient PO intake of meals during LOS. Goal #2 Maintain body weight within +/ -3% of admission body weight during LOS. Follow-Up By: 11/25/21 Additional Comments When pertinent, start monitoring food and ONS tolerance, %PO intake of meals , and BM.
[2021-11-21] MEDS: POTASSIUM CHLORIDE 10 MEQ 10 MEQ/100 ML BAG IV SCH ×8 (12:35→20:57)
[2021-11-21] MEDS: hydrALAZINE 20 MG/1 ML INJ IV PRN (14:26)
--- NOTE | 2021-11-21 19:22 | Progress Note ---
Assessment and Plan - Patient Problems (1) Small bowel obstruction Current Visit: Yes Status: Acute Plan to address problem: 1) SBO appears to be improving. 2) AXR, CBC and BMP in the am 3) Hypokalemia will need to be aggressively corrected. 4) Pt prefers phenergan rather than Zofran. Subjective Date of service: 11/21/21 Patient Reports: Positive: no new complaints, feels better, pain is less, flatus, bowel movement, diarrhea. Negative: nausea, vomiting Objective Vital Signs - 12hr 11/21/21 11/21/21 11/21/21 10:00 11:21 17:58 Temperature 98.2 F 98.2 F Pulse Rate 107 H 104 H Respiratory 18 18 Rate Blood Pressure 162/66 124/62 O2 Sat by Pulse 96 97 96 Oximetry - Abdomen PM_46_EXABD1 4, PM_46_EXABD1 6, PM_46_EXABD1 8 Hernia: none - Labs 11/19/21 06:08 11/21/21 06:22 Diabetes panel 11/21/21 Range/Units 06:22 Sodium 141 (137-145) mmol/L Potassium 2.7 L* (3.6-5.0) mmol/L Chloride 108.9 H (98-107) mmol/L Carbon Dioxide 19 L (22-30) mmol/L BUN 21 H (7-17) mg/dL Creatinine 0.7 (0.6-1.2) mg/dL Glucose 112 H (65-100) mg/dL Calcium 9.7 (8.4-10.2) mg/dL Calcium panel 11/21/21 Range/Units 06:22 Calcium 9.7 (8.4-10.2) mg/dL Pituitary panel 11/21/21 Range/Units 06:22 Sodium 141 (137-145) mmol/L Potassium 2.7 L* (3.6-5.0) mmol/L Chloride 108.9 H (98-107) mmol/L Carbon Dioxide 19 L (22-30) mmol/L BUN 21 H (7-17) mg/dL Creatinine 0.7 (0.6-1.2) mg/dL Glucose 112 H (65-100) mg/dL Calcium 9.7 (8.4-10.2) mg/dL Adrenal panel 03/27/22 Range/Units 06:22 Sodium 141 (137-145) mmol/L Potassium 2.7 L* (3.6-5.0) mmol/L Chloride 108.9 H (98-107) mmol/L Carbon Dioxide 19 L (22-30) mmol/L BUN 21 H (7-17) mg/dL Creatinine 0.7 (0.6-1.2) mg/dL Glucose 112 H (65-100) mg/dL Calcium 9.7 (8.4-10.2) mg/dL
[2021-11-21] MEDS ORDERED: PROMETHAZINE 25 MG RECT SUPP PR PRN (19:24)
[2021-11-22] MEDS ORDERED: LORazepam 2 MG/ML VIAL IV ONE (00:15)
[2021-11-22] MEDS: METOPROLOL TARTRATE 5 MG/5 ML INJ IV SCH ×4 (00:55→22:15)
[2021-11-22] MEDS: MORPHINE 2 MG/1 ML INJ IV PRN ×2 (06:51→17:50)
--- NOTE | 2021-11-22 08:32 | Progress Note ---
Assessment and Plan CT abdo with small bowel obstruction. Pt with prior surgery. Patient notes that hysterectomy was complicated with a bowel injury. She also notes that she has had several prior admissions for bowel obstruction secondary to adhesions manag ed conservatively. Continue NG, IVF, serial examines. Patient states that she is feels better. NG tube is in place. She notes that she had flatus within the last hour. Her last BM was yesterday was soft. We will do a CT scan with contrast through the NG tube prior to removing the NG tube. Subjective Date of service: 11/22/21 Patient Reports: Positive: no new complaints Narrative: Patient states that she is feels better. NG tube is in place. She notes that she had flatus within the last hour. Her last BM was yesterday was soft. We will do a CT scan with contrast through the NG tube prior to removing the NG tube. Objective Vital Signs - 12hr 11/21/21 11/21/21 11/21/21 20:49 22:00 23:11 Temperature 99.4 F Pulse Rate 95 H Respiratory 18 17 18 Rate Respiratory 17 Rate [Abdomen] Blood Pressure 135/62 O2 Sat by Pulse 95 92 Oximetry 11/21/21 11/22/21 11/22/21 23:41 00:44 00:55 Temperature 97.9 F Pulse Rate 90 96 H Respiratory 17 18 Rate Respiratory Rate [Abdomen] Blood Pressure 162/73 162/73 O2 Sat by Pulse 96 Oximetry 11/22/21 11/22/21 11/22/21 01:10 05:43 05:45 Temperature 98.6 F Pulse Rate 92 H 90 Respiratory 18 Rate Respiratory Rate [Abdomen] Blood Pressure 154/76 156/75 O2 Sat by Pulse 94 96 Oximetry 11/22/21 11/22/21 11/22/21 06:30 06:51 07:21 Temperature Pulse Rate 78 Respiratory 17 17 Rate Respiratory Rate [Abdomen] Blood Pressure 175/79 O2 Sat by Pulse Oximetry - Labs 11/22/21 07:52 11/22/21 07:52
[2021-11-22 09:15] LABS: Basophils % (Auto) 0.2 % (0.0-1.8); Eosinophils # (Auto) 0.1 K/mm3 (0.0-0.4); Eosinophils % (Auto) 0.8 % (0.0-4.3); Hematocrit 35.7 % (30.3-42.9); Hemoglobin 12.4 gm/dl (10.1-14.3); Lymphocytes # (Auto) 1.5 K/mm3 (1.2-5.4); Lymphocytes % (Auto) 24.1 % (13.4-35.0); Mean Corpuscular HGB Conc 35 % (30-34); Mean Corpuscular Volume 99 fl (79-97); Monocytes # (Auto) 0.6 K/mm3 (0.0-0.8); Platelet Count 183 K/mm3 (140-440); Red Blood Count 3.61 M/mm3 (3.65-5.03); Red Cell Distribution Width 13.3 % (13.2-15.2)
[2021-11-22 09:32] LABS: BUN/Creatinine Ratio 27; Blood Urea Nitrogen 19 mg/dL (7-17); Calcium 9.2 mg/dL (8.4-10.2); Hemolysis Index 8
--- NOTE | 2021-11-22 10:35 | XRay Report ---
ABDOMEN 2 VIEWS INDICATION / CLINICAL INFORMATION: sbo. COMPARISON: None available. FINDINGS: TUBES / LINES: Nasogastric tube appears unchanged. BOWEL GAS PATTERN: There is mild gaseous distention of small bowel loops in the midabdomen the degree of small bowel distention has improved since 11/19/2021 FREE AIR / EXTRALUMINAL GAS: None seen. ADDITIONAL FINDINGS: Multiple surgical clips project over the mid abdomen and in the right upper quad rant. CHEST: Visualized chest shows no significant abnormality. IMPRESSION: 1. Small bowel distention persists but has improved since 11/19/2021. Signer Name: Raymond Lutz MD Signed: 11/22/2021 10:30 AM Workstation Name: [email or web address]
[2021-11-22] MEDS: PANTOPRAZOLE 40 MG INJ IV SCH ×2 (11:00→22:17)
[2021-11-22] MEDS ORDERED: MAGNESIUM SULFATE 2 GM/50 ML BAG IV ONE (11:00)
[2021-11-22] MEDS: METOCLOPRAMIDE 10 MG/2 ML INJ IV SCH ×2 (11:00→17:49)
[2021-11-22] MEDS: HEPARIN 5,000 UNIT/1 ML VIAL SUB-Q SCH ×2 (11:01→22:18)
[2021-11-22] MEDS: D5W/0.9% NACL 1,000 ML IV SCH ×2 (11:09→22:59)
--- NOTE | 2021-11-22 13:05 | Progress Note ---
Assessment and Plan Assessment and plan: #Distal small bowel obstruction #SIRSresolved #Leukocytosisresolved Heart rate 96, WBC 17.2 CT abdomen/pelvis with contrast revealing moderate to high-grade distal SBO Patient having stool that is going around obstruction. Continue to attempt NG tube to suction. Patient now requesting NG tube placementRN was notified. Patient will be n.p.o. until resolution of small bowel obstruction. Continue n.p.o. status. CT abdomen and pelvis (11/20/2019) revealing significant distention of small bowel without any real improvement compared to original imaging on admission. Continue to monitor #History of gastric ulcer Continue IV PPI; patient normally takes Protonix at home #COPD Continue DuoNebs and albuterol nebs as needed Minimal wheezing. Much better. Good air entry. #Hypokalemia Potassium 2.7. Likely secondary to hypomagnesemia. Magnesium repleted and potassium repleted. Repleting. Monitor with repeat BMP in the morning. #Hypercalcemiaresolved Calcium 11.9 Likely secondary to decreased volume status and possible hemo-concentration Continue IV fluid resuscitation. Monitor with repeat labs. #Advanced care planning -Disease education conducted, care plan discussed, diagnoses discussed, prognosis discussed, and patient acknowledges understanding with care plan -Time: +30min spent with patient and patient family. Disposition Plan: Continue to monitor Disposition Plan: Continue medical management Total Time Spent with Patient (Minutes): 30 minutes History Interval history: Patient had NG tube replaced last night. Hospitalist Physical - Constitutional Vitals: Temp Pulse Resp BP Pulse Ox 97.8 F 87 16 175/73 96 11/22/21 06:30 11/22/21 11:25 11/22/21 11:25 11/22/21 11:25 11/22/21 11:25 General appearance: Present: mild distress, cachectic - EENT Eyes: Present: PERRL, EOM intact ENT: hearing intact, clear oral mucosa, edentulous, other (NG tube in place draining brown of bowel contents) - Neck Neck: Present: supple, normal ROM - Respiratory Respiratory effort: normal Respiratory: bilateral: CTA - Cardiovascular Rhythm: regular Heart Sounds: Present: S1 & S2 - Extremities Extremities: no ischemia, pulses intact, pulses symmetrical, No edema, normal temperature, normal color, Full ROM Peripheral Pulses: within normal limits - Abdominal General gastrointestinal: soft, tender, non-distended, normal bowel sounds - Integumentary Integumentary: Present: clear, warm, dry - Psychiatric Psychiatric: appropriate mood/affect, cooperative - Neurologic Neurologic: CNII-XII intact, moves all extremities - Allied Health Allied health notes reviewed: nursing Results - Labs CBC & Chem 7: 11/22/21 07:52 11/22/21 07:52 Labs: Laboratory Last Values WBC 6.1 K/mm3 (4.5-11.0) 11/22/21 07:52 RBC 3.61 M/mm3 (3.65-5.03) L 11/22/21 07:52 Hgb 12.4 gm/dl (10.1-14.3) 11/22/21 07:52 Hct 35.7 % (30.3-42.9) 11/22/21 07:52 MCV 99 fl (79-97) H 11/22/21 07:52 MCH 34 pg (28-32) H 11/22/21 07:52 MCHC 35 % (30-34) H 11/22/21 07:52 RDW 13.3 % (13.2-15.2) 11/22/21 07:52 Plt Count 183 K/mm3 (140-440) 11/22/21 07:52 Lymph % (Auto) 24.1 % (13.4-35.0) 11/22/21 07:52 [place] % (Auto) 9.0 % (0.0-7.3) H 11/22/21 07:52 Eos % (Auto) 0.8 % (0.0-4.3) 11/22/21 07:52 Baso % (Auto) 0.2 % (0.0-1.8) 11/22/21 07:52 Lymph # (Auto) 1.5 K/mm3 (1.2-5.4) 11/22/21 07:52 Haines # (Auto) 0.6 K/mm3 (0.0-0.8) 11/22/21 07:52 Eos # (Auto) 0.1 K/mm3 (0.0-0.4) 11/22/21 07:52 Baso # (Auto) 0.0 K/mm3 (0.0-0.1) 11/22/21 07:52 Add Manual Diff Complete 11/17/21 07:42 Total Counted 100 11/17/21 07:42 Seg Neutrophils % 65.9 % (40.0-70.0) 11/22/21 07:52 Seg Neuts % (Manual) 93.0 % (40.0-70.0) H 11/17/21 07:42 Band Neutrophils % 0 % 11/17/21 07:42 Lymphocytes % (Manual) 5.0 % (13.4-35.0) L 11/17/21 07:42 Reactive Lymphs % (Man) 0 % 11/17/21 07:42 Monocytes % (Manual) 2.0 % (0.0-7.3) 11/17/21 07:42 Eosinophils % (Manual) 0 % (0.0-4.3) 11/17/21 07:42 Basophils % (Manual) 0 % (0.0-1.8) 11/17/21 07:42 Metamyelocytes % 0 % 11/17/21 07:42 Myelocytes % 0 % 11/17/21 07:42 Promyelocytes % 0 % 11/17/21 07:42 Blast Cells % 0 % 11/17/21 07:42 Nucleated RBC % Not Reportable 11/17/21 07:42 Seg Neutrophils # 4.0 K/mm3 (1.8-7.7) 11/22/21 07:52 Seg Neutrophils # Man 16.0 K/mm3 (1.8-7.7) H 11/17/21 07:42 Band Neutrophils # 0.0 K/mm3 11/17/21 07:42 Lymphocytes # (Manual) 0.9 K/mm3 (1.2-5.4) L 11/17/21 07:42 Abs React Lymphs (Man) 0.0 K/mm3 11/17/21 07:42 Monocytes # (Manual) 0.3 K/mm3 (0.0-0.8) 11/17/21 07:42 Eosinophils # (Manual) 0.0 K/mm3 (0.0-0.4) 11/17/21 07:42 Basophils # (Manual) 0.0 K/mm3 (0.0-0.1) 11/17/21 07:42 Metamyelocytes # 0.0 K/mm3 11/17/21 07:42 Myelocytes # 0.0 K/mm3 11/17/21 07:42 Promyelocytes # 0.0 K/mm3 11/17/21 07:42 Blast Cells # 0.0 K/mm3 11/17/21 07:42 WBC Morphology Not Reportable 11/17/21 07:42 Hypersegmented Neuts Not Reportable 11/17/21 07:42 Hyposegmented Neuts Not Reportable 11/17/21 07:42 Hypogranular Neuts Not Reportable 11/17/21 07:42 Smudge Cells Not Reportable 11/17/21 07:42 Toxic Granulation Not Reportable 11/17/21 07:42 Toxic Vacuolation Not Reportable 11/17/21 07:42 Dohle Bodies Not Reportable 11/17/21 07:42 Pelger-Huet Anomaly Not Reportable 11/17/21 07:42 Rekha Rods Not Reportable 11/17/21 07:42 Platelet Estimate Consistent w auto 11/17/21 07:42 Clumped Platelets Not Reportable 11/17/21 07:42 Plt Clumps, EDTA Not Reportable 11/17/21 07:42 Large Platelets Not Reportable 11/17/21 07:42 Giant Platelets Not Reportable 11/17/21 07:42 Platelet Satelliting Not Reportable 11/17/21 07:42 Plt Morphology Comment Not Reportable 11/17/21 07:42 RBC Morphology Normal 11/17/21 07:42 Dimorphic RBCs Not Reportable 11/17/21 07:42 Polychromasia Not Reportable 11/17/21 07:42 Hypochromasia Not Reportable 11/17/21 07:42 Poikilocytosis Not Reportable 11/17/21 07:42 Anisocytosis Not Reportable 11/17/21 07:42 Microcytosis Not Reportable 11/17/21 07:42 Macrocytosis Not Reportable 11/17/21 07:42 Spherocytes Not Reportable 11/17/21 07:42 Pappenheimer Bodies Not Reportable 11/17/21 07:42 Sickle Cells Not Reportable 11/17/21 07:42 Target Cells Not Reportable 11/17/21 07:42 Tear Drop Cells Not Reportable 11/17/21 07:42 Ovalocytes Not Reportable 11/17/21 07:42 Helmet Cells Not Reportable 11/17/21 07:42 [place] Bodies Not Reportable 11/17/21 07:42 [place] Rings Not Reportable 11/17/21 07:42 [place] Cells Not Reportable 11/17/21 07:42 Bite Cells Not Reportable 11/17/21 07:42 Crenated Cell Not Reportable 11/17/21 07:42 Elliptocytes Not Reportable 11/17/21 07:42 Acanthocytes (Spur) Not Reportable 11/17/21 07:42 Rouleaux Not Reportable 11/17/21 07:42 Hemoglobin C Crystals Not Reportable 11/17/21 07:42 Schistocytes Not Reportable 11/17/21 07:42 Malaria parasites Not Reportable 11/17/21 07:42 Behzad Bodies Not Reportable 11/17/21 07:42 Hem Pathologist Commnt No 11/17/21 07:42 Sodium 147 mmol/L (137-145) H 11/22/21 07:52 Potassium 2.9 mmol/L (3.6-5.0) L* 11/22/21 07:52 Chloride 115.2 mmol/L (98-107) H 11/22/21 07:52 Carbon Dioxide 19 mmol/L (22-30) L 11/22/21 07:52 Anion Gap 16 mmol/L 11/22/21 07:52 BUN 19 mg/dL (7-17) H 11/22/21 07:52 Creatinine 0.7 mg/dL (0.6-1.2) 11/22/21 07:52 Estimated GFR > 60 ml/min 11/22/21 07:52 BUN/Creatinine Ratio 27 % 11/22/21 07:52 Glucose 108 mg/dL (65-100) H 11/22/21 07:52 POC Glucose 121 mg/dL (70-105) H 11/19/21 22:58 Calcium 9.2 mg/dL (8.4-10.2) 11/22/21 07:52 Total Bilirubin 1.00 mg/dL (0.1-1.2) 11/17/21 07:35 Direct Bilirubin 0.3 mg/dL (0-0.2) H 11/17/21 07:35 Indirect Bilirubin 0.7 mg/dL 11/17/21 07:35 AST 15 units/L (5-40) 11/17/21 07:35 ALT 8 units/L (7-56) 11/17/21 07:35 Alkaline Phosphatase 52 units/L (35-129) 11/17/21 07:35 Total Protein 8.9 g/dL (6.3-8.2) H 11/17/21 07:35 Albumin 5.3 g/dL (3.9-5) H 11/17/21 07:35 Albumin/Globulin Ratio 1.5 % 11/17/21 07:35 Lipase 13 units/L (13-60) 11/17/21 07:35 Mccallum/IV: Voiding Method Bedside Commode Active Medications - Current Medications Current Medications: Generic Name Dose Route Start Last Admin Trade Name Freq PRN Reason Stop Dose Admin Acetaminophen 650 mg 11/17/21 11:44 11/18/21 12:06 Acetaminophen 325 Mg Tab PO 650 mg Q4H PRN Administration Pain MILD(1-3)/Fever >100.5/CRUZ Albuterol 2.5 mg 11/20/21 21:30 Albuterol 2.5 Mg/3 Ml Nebu IH Q4HRT PRN Shortness Of Breath Heparin Sodium (Porcine) 5,000 unit 11/17/21 22:00 11/22/21 11:01 Heparin 5,000 Unit/1 Ml Vial SUB-Q 5,000 unit BID EMILY Administration Hydralazine HCl 10 mg 11/19/21 21:28 11/21/21 14:26 Hydralazine 20 Mg/1 Ml Inj IV 10 mg Q6HR PRN Administration Hypertension Hydromorphone HCl 0.5 mg 11/17/21 11:44 11/21/21 23:11 Hydromorphone 1 Mg/1 Ml Inj IV 0.5 mg Q3H PRN Administration Pain , Severe (7-10) Dextrose/Sodium Chloride 1,000 mls @ 125 mls/hr 11/17/21 12:00 11/22/21 11:09 D5ns IV 75 mls/hr DIRECT EMILY Administration Potassium Chloride 10 meq in 100 mls @ 100 mls/hr 11/22/21 11:00 Kcl 10meq/100ml IV 11/22/21 14:59 Q1H EMILY Potassium Chloride 10 meq in 100 mls @ 100 mls/hr 11/22/21 17:00 Kcl 10meq/100ml IV 11/22/21 20:59 Q1H EMILY Metoclopramide HCl 5 mg 11/22/21 11:00 11/22/21 11:00 Metoclopramide 10 Mg/2 Ml Inj IV 5 mg Q6HR EMILY Administration Metoprolol Tartrate 5 mg 11/19/21 00:00 11/22/21 06:30 Metoprolol Tartrate 5 Mg/5 Ml Inj IV 5 mg Q6HR EMILY Administration Morphine Sulfate 2 mg 11/17/21 11:44 11/22/21 06:51 Morphine 2 Mg/1 Ml Inj IV 2 mg Q6H PRN Administration Pain, Moderate (4-6) Pantoprazole Sodium 40 mg 11/17/21 22:00 11/22/21 11:00 Pantoprazole 40 Mg Inj IV 40 mg BID EMILY Administration Promethazine HCl 25 mg 11/21/21 19:24 Promethazine 25 Mg Rect Supp NM Q6H PRN Nausea And Vomiting Sodium Chloride 10 ml 11/17/21 12:00 11/22/21 11:01 Sodium Chloride 0.9% 10 Ml Flush Syringe IV 10 ml BID EMILY Administration Sodium Chloride 10 ml 11/17/21 11:44 Sodium Chloride 0.9% 10 Ml Flush Syringe IV PRN PRN LINE FLUSH Nutrition/Malnutrition Assess - Dietary Evaluation Nutrition/Malnutrition Findings: Nutrition Notes Start: 11/18/21 16:04 Freq: Status: Active Protocol: Document 11/18/21 16:04 JAYCOB (Rec: 11/18/21 16:35 JAYCOB [id number]) Nutrition Notes Need for Assessment generated from: MD Order,Low BMI Initial or Follow up Assessment Current Diagnosis COPD,Small Bowel Obstruction Other Pertinent Diagnosis N/V/Abdominal Pain, SIRS, Leukocytosis, Gastric Ulcer, Hyperglycemia. Current Diet NPO (since 11/17 11:45). Labs/Tests 11/18: Na 136, BUN 24, Glu 142. Pertinent Medications 11/18: D5ns 1000 ml @ 75 ml/hr , others nutritionally unremarkable. Height 5 ft 7 in Weight 52.16 kg [place] Body Weight (kg) 61.36 BMI 18.0 Weight change and time frame None reported at admission. Weight Status Underweight Subjective/Other Information RD consult for Low BMI assessment and dietary supplementation needs. Pt to remain NPO until SBO resolves, according to Progress notes. Pt refusing NG tube placement, according to RN notes. Pt has missing teeth, according to Physical Assessment History notes. Pt's Low BMI seems to correspond to a natural body composition, and not related to a sudden loss of body weight nor chronic malnutrition, since none were mentioned in the Physical Assessment History or the Progress notes. Percent of energy/protein needs met: Pt currently on NPO. Burn Absent Trauma Absent GI Symptoms Nausea,Vomiting,Other Food Allergy No Skin Integrity/Comment Assessment WNL. Minimum of two criteria No #1 Nutrition Diagnosis Altered GI function Comments: Pt to remain NPO until SBO resolves, according to Progress notes. Will reassess at F/U. Etiology Uncertain. As Evidenced by Signs and Symptoms N/V/Abdominal Pain. Is patient on ventilator? No Is Patient Ambulatory and/or Out of Bed Yes [facility] [ 1344.499 NUTR.[id number]] Kcal/Kg value to use for calculation 33 Approximate Energy Requirements Using 1721 kcal/Kg Calculation Used for Recommendations Kcal/kg Additional Notes Protein: 1-1.2 g/Kg IBW; 61-73 g/day. Fluids: 1 ml/Kcal, or as per MD. Nutrition Intervention Change Diet Order: Advance to Clear Liquids Diet as soon as SBO resolves. Add Supplement/Snack (indicate name/kcal When pertinent, start 8 fl oz /protein ) Ensure Clear; TID. Provides kCal: 720 Provides Protein (gm) 24 Goal #1 Compensate, through dietary supplementation, for possible poor or insufficient PO intake of meals during LOS. Goal #2 Maintain body weight within +/ -3% of admission body weight during LOS. Follow-Up By: 11/25/21 Additional Comments When pertinent, start monitoring food and ONS tolerance, %PO intake of meals , and BM.
[2021-11-22] MEDS: POTASSIUM CHLORIDE 10 MEQ 10 MEQ/100 ML BAG IV SCH ×8 (13:07→22:59)
[2021-11-22] MEDS: HYDROmorphone 1 MG/1 ML INJ IV PRN (22:23)
[2021-11-23] MEDS: METOPROLOL TARTRATE 5 MG/5 ML INJ IV SCH ×4 (01:11→19:09)
[2021-11-23] MEDS: METOCLOPRAMIDE 10 MG/2 ML INJ IV SCH ×4 (01:16→19:09)
--- NOTE | 2021-11-23 06:01 | XRay Report ---
XR abdomen 1V ap INDICATION / CLINICAL INFORMATION: [place] sump placement. COMPARISON: None available. TECHNIQUE: One view supine AP abdomen. FINDINGS: TUBES / LINES: Esophagogastric tube terminates within the proximal to mid fundus. BOWEL GAS PATTERN: No significant abnormality. FREE AIR / EXTRALUMINAL GAS: None seen. ADDITIONAL FINDINGS: Lungs grossly clear with exception of mild prominence of interstitial markings l ikely chronic. IMPRESSION: 1. Esophagogastric tube in expected position. Signer Name: Canelo Verde II, MD Signed: 11/23/2021 5:56 AM Workstation Name: [id number]
[2021-11-23 06:21] LABS: Basophils % (Auto) 0.3 % (0.0-1.8); Eosinophils # (Auto) 0.1 K/mm3 (0.0-0.4); Eosinophils % (Auto) 0.9 % (0.0-4.3); Hematocrit 36.9 % (30.3-42.9); Lymphocytes # (Auto) 2.1 K/mm3 (1.2-5.4); Lymphocytes % (Auto) 18.8 % (13.4-35.0); Mean Corpuscular HGB Conc 35 % (30-34); Mean Corpuscular Volume 98 fl (79-97); Monocytes # (Auto) 0.8 K/mm3 (0.0-0.8); Monocytes % (Auto) 7.5 % (0.0-7.3); Platelet Count 210 K/mm3 (140-440); Red Blood Count 3.76 M/mm3 (3.65-5.03); Red Cell Distribution Width 13.4 % (13.2-15.2)
[2021-11-23 06:30] LABS: INR 1.06 (0.87-1.13)
[2021-11-23] MEDS: D5W/0.9% NACL 1,000 ML IV SCH (06:37)
[2021-11-23 06:39] LABS: Blood Urea Nitrogen 10 mg/dL (7-17); Calcium 8.7 mg/dL (8.4-10.2); Hemolysis Index 3
[2021-11-23 06:41] LABS: BUN/Creatinine Ratio 14
--- NOTE | 2021-11-23 08:00 | Progress Note ---
Assessment and Plan Assessment and plan: #Distal small bowel obstruction #SIRSresolved #Leukocytosisresolved CT abdomen/pelvis with contrast on admission revealing moderate to high-grade distal SBO -repeat CT scan pending -NGT to suction, fell out today, will replace depending on Surgery recs and CT findings -continue NPO status for now; IVFs -General Surgery following, assistance appreciated #History of gastric ulcer Continue IV PPI; patient normally takes Protonix at home #COPD -not in acute exacerbation currently -continue DuoNebs and albuterol nebs as needed #Hypokalemia -Potassium 2.7, will continue to replete and monitor -magnesium and phosphorus levels ordered #Hypercalcemiaresolved Likely secondary to decreased volume status and possible hemo-concentration Continue IV fluid resuscitation. Monitor with repeat labs. #Advanced care planning -Disease education conducted, care plan discussed, diagnoses discussed, prognosis discussed, and patient acknowledges understanding with care plan -Time: +30min spent with patient History Interval history: NG tube fell out this morning. Per patient an NG tube was placed last night and she did not have a platelet. Has tolerated oral contrast. Reports having 1 large bowel movement overnight. No current nausea or vomiting. She has no other complaints at this time. Hospitalist Physical - Physical exam Narrative exam: GENERAL: Thin woman. In no acute distress. HEENT: Normocephalic. Atraumatic. NECK: Supple. CHEST/LUNGS: CTAB on room air HEART/CARDIOVASCULAR: RRR. No murmur, rubs or gallops appreciated. ABDOMEN: +BS. NT/ND. SKIN: No rashes noted. NEURO: No focal motor deficit. Follows all commands. MUSCULOSKELETAL: No joint effusion EXTREMITIES: No cyanosis, clubbing or edema. PSYCH: Cooperative. - Constitutional Vitals: Temp Pulse Resp BP Pulse Ox 98.4 F 93 H 20 180/71 97 11/23/21 04:22 11/23/21 05:12 11/23/21 04:22 11/23/21 05:12 11/23/21 04:22 General appearance: Present: mild distress, cachectic Results - Labs CBC & Chem 7: 11/23/21 05:53 11/23/21 05:53 Labs: Laboratory Last Values WBC 11.1 K/mm3 (4.5-11.0) H 11/23/21 05:53 RBC 3.76 M/mm3 (3.65-5.03) 11/23/21 05:53 Hgb 13.0 gm/dl (10.1-14.3) 11/23/21 05:53 Hct 36.9 % (30.3-42.9) 11/23/21 05:53 MCV 98 fl (79-97) H 11/23/21 05:53 MCH 35 pg (28-32) H 11/23/21 05:53 MCHC 35 % (30-34) H 11/23/21 05:53 RDW 13.4 % (13.2-15.2) 11/23/21 05:53 Plt Count 210 K/mm3 (140-440) 11/23/21 05:53 Lymph % (Auto) 18.8 % (13.4-35.0) 11/23/21 05:53 [place] % (Auto) 7.5 % (0.0-7.3) H 11/23/21 05:53 Eos % (Auto) 0.9 % (0.0-4.3) 11/23/21 05:53 Baso % (Auto) 0.3 % (0.0-1.8) 11/23/21 05:53 Lymph # (Auto) 2.1 K/mm3 (1.2-5.4) 11/23/21 05:53 [place] # (Auto) 0.8 K/mm3 (0.0-0.8) 11/23/21 05:53 Eos # (Auto) 0.1 K/mm3 (0.0-0.4) 11/23/21 05:53 Baso # (Auto) 0.0 K/mm3 (0.0-0.1) 11/23/21 05:53 Add Manual Diff Complete 11/17/21 07:42 Total Counted 100 11/17/21 07:42 Seg Neutrophils % 72.5 % (40.0-70.0) H 11/23/21 05:53 Seg Neuts % (Manual) 93.0 % (40.0-70.0) H 11/17/21 07:42 Band Neutrophils % 0 % 11/17/21 07:42 Lymphocytes % (Manual) 5.0 % (13.4-35.0) L 11/17/21 07:42 Reactive Lymphs % (Man) 0 % 03/23/22 07:42 Monocytes % (Manual) 2.0 % (0.0-7.3) 11/17/21 07:42 Eosinophils % (Manual) 0 % (0.0-4.3) 11/17/21 07:42 Basophils % (Manual) 0 % (0.0-1.8) 11/17/21 07:42 Metamyelocytes % 0 % 11/17/21 07:42 Myelocytes % 0 % 11/17/21 07:42 Promyelocytes % 0 % 11/17/21 07:42 Blast Cells % 0 % 11/17/21 07:42 Nucleated RBC % Not Reportable 11/17/21 07:42 Seg Neutrophils # 8.1 K/mm3 (1.8-7.7) H 11/23/21 05:53 Seg Neutrophils # Man 16.0 K/mm3 (1.8-7.7) H 11/17/21 07:42 Band Neutrophils # 0.0 K/mm3 11/17/21 07:42 Lymphocytes # (Manual) 0.9 K/mm3 (1.2-5.4) L 11/17/21 07:42 Abs React Lymphs (Man) 0.0 K/mm3 11/17/21 07:42 Monocytes # (Manual) 0.3 K/mm3 (0.0-0.8) 11/17/21 07:42 Eosinophils # (Manual) 0.0 K/mm3 (0.0-0.4) 11/17/21 07:42 Basophils # (Manual) 0.0 K/mm3 (0.0-0.1) 11/17/21 07:42 Metamyelocytes # 0.0 K/mm3 11/17/21 07:42 Myelocytes # 0.0 K/mm3 11/17/21 07:42 Promyelocytes # 0.0 K/mm3 11/17/21 07:42 Blast Cells # 0.0 K/mm3 11/17/21 07:42 WBC Morphology Not Reportable 11/17/21 07:42 Hypersegmented Neuts Not Reportable 11/17/21 07:42 Hyposegmented Neuts Not Reportable 11/17/21 07:42 Hypogranular Neuts Not Reportable 11/17/21 07:42 Smudge Cells Not Reportable 11/17/21 07:42 Toxic Granulation Not Reportable 11/17/21 07:42 Toxic Vacuolation Not Reportable 11/17/21 07:42 Dohle Bodies Not Reportable 11/17/21 07:42 Pelger-Huet Anomaly Not Reportable 11/17/21 07:42 Rekha Rods Not Reportable 11/17/21 07:42 Platelet Estimate Consistent w auto 11/17/21 07:42 Clumped Platelets Not Reportable 11/17/21 07:42 Plt Clumps, EDTA Not Reportable 11/17/21 07:42 Large Platelets Not Reportable 11/17/21 07:42 Giant Platelets Not Reportable 11/17/21 07:42 Platelet Satelliting Not Reportable 11/17/21 07:42 Plt Morphology Comment Not Reportable 11/17/21 07:42 RBC Morphology Normal 11/17/21 07:42 Dimorphic RBCs Not Reportable 11/17/21 07:42 Polychromasia Not Reportable 11/17/21 07:42 Hypochromasia Not Reportable 11/17/21 07:42 Poikilocytosis Not Reportable 11/17/21 07:42 Anisocytosis Not Reportable 11/17/21 07:42 Microcytosis Not Reportable 11/17/21 07:42 Macrocytosis Not Reportable 11/17/21 07:42 Spherocytes Not Reportable 11/17/21 07:42 Pappenheimer Bodies Not Reportable 11/17/21 07:42 Sickle Cells Not Reportable 11/17/21 07:42 Target Cells Not Reportable 11/17/21 07:42 Tear Drop Cells Not Reportable 11/17/21 07:42 Ovalocytes Not Reportable 11/17/21 07:42 Helmet Cells Not Reportable 11/17/21 07:42 [place] Bodies Not Reportable 11/17/21 07:42 [place] Rings Not Reportable 11/17/21 07:42 [place] Cells Not Reportable 11/17/21 07:42 Bite Cells Not Reportable 11/17/21 07:42 Crenated Cell Not Reportable 11/17/21 07:42 Elliptocytes Not Reportable 11/17/21 07:42 Acanthocytes (Spur) Not Reportable 11/17/21 07:42 Rouleaux Not Reportable 11/17/21 07:42 Hemoglobin C Crystals Not Reportable 11/17/21 07:42 Schistocytes Not Reportable 11/17/21 07:42 Malaria parasites Not Reportable 11/17/21 07:42 Behzad Bodies Not Reportable 11/17/21 07:42 Hem Pathologist Commnt No 11/17/21 07:42 PT 15.0 Sec. (12.2-14.9) H 11/23/21 05:53 INR 1.06 (0.87-1.13) 11/23/21 05:53 Sodium 142 mmol/L (137-145) 11/23/21 05:53 Potassium 2.7 mmol/L (3.6-5.0) L* 11/23/21 05:53 Chloride 108.6 mmol/L (98-107) H 11/23/21 05:53 Carbon Dioxide 21 mmol/L (22-30) L 11/23/21 05:53 Anion Gap 15 mmol/L 11/23/21 05:53 BUN 10 mg/dL (7-17) 11/23/21 05:53 Creatinine 0.7 mg/dL (0.6-1.2) 11/23/21 05:53 Estimated GFR > 60 ml/min 11/23/21 05:53 BUN/Creatinine Ratio 14 % 11/23/21 05:53 Glucose 121 mg/dL (65-100) H 11/23/21 05:53 POC Glucose 121 mg/dL (70-105) H 11/19/21 22:58 Calcium 8.7 mg/dL (8.4-10.2) 11/23/21 05:53 Total Bilirubin 1.00 mg/dL (0.1-1.2) 11/17/21 07:35 Direct Bilirubin 0.3 mg/dL (0-0.2) H 11/17/21 07:35 Indirect Bilirubin 0.7 mg/dL 11/17/21 07:35 AST 15 units/L (5-40) 11/17/21 07:35 ALT 8 units/L (7-56) 11/17/21 07:35 Alkaline Phosphatase 52 units/L (35-129) 11/17/21 07:35 Total Protein 8.9 g/dL (6.3-8.2) H 11/17/21 07:35 Albumin 5.3 g/dL (3.9-5) H 11/17/21 07:35 Albumin/Globulin Ratio 1.5 % 11/17/21 07:35 Lipase 13 units/L (13-60) 11/17/21 07:35 Mccallum/IV: Voiding Method Bedside Commode Active Medications - Current Medications Current Medications: Generic Name Dose Route Start Last Admin Trade Name Freq PRN Reason Stop Dose Admin Acetaminophen 650 mg 11/17/21 11:44 11/18/21 12:06 Acetaminophen 325 Mg Tab PO 650 mg Q4H PRN Administration Pain MILD(1-3)/Fever >100.5/CRUZ Albuterol 2.5 mg 11/20/21 21:30 Albuterol 2.5 Mg/3 Ml Nebu IH Q4HRT PRN Shortness Of Breath Heparin Sodium (Porcine) 5,000 unit 11/17/21 22:00 11/22/21 22:18 Heparin 5,000 Unit/1 Ml Vial SUB-Q 5,000 unit BID EMILY Administration Hydralazine HCl 10 mg 11/19/21 21:28 11/21/21 14:26 Hydralazine 20 Mg/1 Ml Inj IV 10 mg Q6HR PRN Administration Hypertension Hydromorphone HCl 0.5 mg 11/17/21 11:44 11/22/21 22:23 Hydromorphone 1 Mg/1 Ml Inj IV 0.5 mg Q3H PRN Administration Pain , Severe (7-10) Dextrose/Sodium Chloride 1,000 mls @ 125 mls/hr 11/17/21 12:00 11/23/21 06:37 D5ns IV 75 mls/hr DIRECT EMILY Administration Potassium Chloride 10 meq in 100 mls @ 100 mls/hr 11/23/21 08:00 Kcl 10meq/100ml IV 11/23/21 11:59 Q1H EMILY Metoclopramide HCl 5 mg 11/22/21 11:00 11/23/21 05:10 Metoclopramide 10 Mg/2 Ml Inj IV 5 mg Q6HR EMILY Administration Metoprolol Tartrate 5 mg 11/19/21 00:00 11/23/21 05:12 Metoprolol Tartrate 5 Mg/5 Ml Inj IV 5 mg Q6HR EMILY Administration Morphine Sulfate 2 mg 11/17/21 11:44 11/22/21 17:50 Morphine 2 Mg/1 Ml Inj IV 2 mg Q6H PRN Administration Pain, Moderate (4-6) Pantoprazole Sodium 40 mg 11/17/21 22:00 11/22/21 22:17 Pantoprazole 40 Mg Inj IV 40 mg BID EMILY Administration Promethazine HCl 25 mg 11/21/21 19:24 Promethazine 25 Mg Rect Supp LA Q6H PRN Nausea And Vomiting Sodium Chloride 10 ml 11/17/21 12:00 11/22/21 22:18 Sodium Chloride 0.9% 10 Ml Flush Syringe IV 10 ml BID EMILY Administration Sodium Chloride 10 ml 11/17/21 11:44 Sodium Chloride 0.9% 10 Ml Flush Syringe IV PRN PRN LINE FLUSH Nutrition/Malnutrition Assess - Dietary Evaluation Nutrition/Malnutrition Findings: Nutrition Notes Start: 11/18/21 16:04 Freq: Status: Active Protocol: Document 11/18/21 16:04 JAYCOB (Rec: 11/18/21 16:35 JAYCOB [id number]) Nutrition Notes Need for Assessment generated from: MD Order,Low BMI Initial or Follow up Assessment Current Diagnosis COPD,Small Bowel Obstruction Other Pertinent Diagnosis N/V/Abdominal Pain, SIRS, Leukocytosis, Gastric Ulcer, Hyperglycemia. Current Diet NPO (since 11/17 11:45). Labs/Tests 11/18: Na 136, BUN 24, Glu 142. Pertinent Medications 11/18: D5ns 1000 ml @ 75 ml/hr , others nutritionally unremarkable. Height 5 ft 7 in Weight 52.16 kg [place] Body Weight (kg) 61.36 BMI 18.0 Weight change and time frame None reported at admission. Weight Status Underweight Subjective/Other Information RD consult for Low BMI assessment and dietary supplementation needs. Pt to remain NPO until SBO resolves, according to Progress notes. Pt refusing NG tube placement, according to RN notes. Pt has missing teeth, according to Physical Assessment History notes. Pt's Low BMI seems to correspond to a natural body composition, and not related to a sudden loss of body weight nor chronic malnutrition, since none were mentioned in the Physical Assessment History or the Progress notes. Percent of energy/protein needs met: Pt currently on NPO. Burn Absent Trauma Absent GI Symptoms Nausea,Vomiting,Other Food Allergy No Skin Integrity/Comment Assessment WNL. Minimum of two criteria No #1 Nutrition Diagnosis Altered GI function Comments: Pt to remain NPO until SBO resolves, according to Progress notes. Will reassess at F/U. Etiology Uncertain. As Evidenced by Signs and Symptoms N/V/Abdominal Pain. Is patient on ventilator? No Is Patient Ambulatory and/or Out of Bed Yes REE-([facility]-amb[facility]/OOB) [ 1344.499 NUTR.MSJOOB] Kcal/Kg value to use for calculation 33 Approximate Energy Requirements Using 1721 kcal/Kg Calculation Used for Recommendations Kcal/kg Additional Notes Protein: 1-1.2 g/Kg IBW; 61-73 g/day. Fluids: 1 ml/Kcal, or as per MD. Nutrition Intervention Change Diet Order: Advance to Clear Liquids Diet as soon as SBO resolves. Add Supplement/Snack (indicate name/kcal When pertinent, start 8 fl oz /protein ) Ensure Clear; TID. Provides kCal: 720 Provides Protein (gm) 24 Goal #1 Compensate, through dietary supplementation, for possible poor or insufficient PO intake of meals during LOS. Goal #2 Maintain body weight within +/ -3% of admission body weight during LOS. Follow-Up By: 11/25/21 Additional Comments When pertinent, start monitoring food and ONS tolerance, %PO intake of meals , and BM.
[2021-11-23] MEDS: POTASSIUM CHLORIDE 10 MEQ 10 MEQ/100 ML BAG IV SCH ×4 (08:53→19:10)
--- NOTE | 2021-11-23 09:26 | Progress Note ---
Assessment and Plan CT abdo with small bowel obstruction. Pt with prior surgery. Patient notes that hysterectomy was complicated with a bowel injury. She also notes that she has had several prior admissions for bowel obstruction secondary to adhesions manag ed conservatively. Continue NG, IVF, serial examines. Patient states that she is feels better. NG tube is in place. She notes that she had flatus within the last hour. Her last BM was yesterday was soft. CT of abdo with contrast not ordered or done last night. It is ordered for this am. Will fu later today. Please cont npo ivf for now. Subjective Date of service: 11/23/21 Narrative: CT of abdo with contrast not ordered or done last night. It is ordered for this am. Will fu later today. Pleas cont npo ivf for now. Objective Vital Signs - 12hr 11/22/21 11/22/21 11/22/21 21:49 22:00 22:15 Temperature 98.3 F Pulse Rate 92 H 92 H Respiratory 18 Rate Blood Pressure 168/61 Blood Pressure 168/61 [Right] O2 Sat by Pulse 96 96 Oximetry 11/23/21 11/23/21 04:22 05:12 Temperature 98.4 F Pulse Rate 93 H 93 H Respiratory 20 Rate Blood Pressure 180/71 Blood Pressure 180/71 [Right] O2 Sat by Pulse 97 Oximetry - Labs 11/23/21 05:53 11/23/21 05:53 Diabetes panel 11/22/21 11/23/21 Range/Units 07:52 05:53 Sodium 147 H 142 (137-145) mmol/L Potassium 2.9 L* 2.7 L* (3.6-5.0) mmol/L Chloride 115.2 H 108.6 H (98-107) mmol/L Carbon Dioxide 19 L 21 L (22-30) mmol/L BUN 19 H 10 (7-17) mg/dL Creatinine 0.7 0.7 (0.6-1.2) mg/dL Glucose 108 H 121 H (65-100) mg/dL Calcium 9.2 8.7 (8.4-10.2) mg/dL Calcium panel 11/22/21 11/23/21 11/23/21 Range/Units 07:52 05:53 05:53 Calcium 9.2 8.7 (8.4-10.2) mg/dL Phosphorus 1.90 L (2.5-4.5) mg/dL Pituitary panel 11/22/21 11/23/21 Range/Units 07:52 05:53 Sodium 147 H 142 (137-145) mmol/L Potassium 2.9 L* 2.7 L* (3.6-5.0) mmol/L Chloride 115.2 H 108.6 H (98-107) mmol/L Carbon Dioxide 19 L 21 L (22-30) mmol/L BUN 19 H 10 (7-17) mg/dL Creatinine 0.7 0.7 (0.6-1.2) mg/dL Glucose 108 H 121 H (65-100) mg/dL Calcium 9.2 8.7 (8.4-10.2) mg/dL Adrenal panel 11/22/21 11/23/21 Range/Units 07:52 05:53 Sodium 147 H 142 (137-145) mmol/L Potassium 2.9 L* 2.7 L* (3.6-5.0) mmol/L Chloride 115.2 H 108.6 H (98-107) mmol/L Carbon Dioxide 19 L 21 L (22-30) mmol/L BUN 19 H 10 (7-17) mg/dL Creatinine 0.7 0.7 (0.6-1.2) mg/dL Glucose 108 H 121 H (65-100) mg/dL Calcium 9.2 8.7 (8.4-10.2) mg/dL
--- NOTE | 2021-11-23 12:33 | Cat Scan Report ---
CT ABDOMEN AND PELVIS WITHOUT CONTRAST HISTORY: Small bowel obstruction COMPARISON: 11/19/2021 TECHNIQUE: Axial CT images were obtained through the abdomen and pelvis without IV contrast. Sagittal and coronal reformatted images. All CT scans at this location are performed using CT dose reduction for ALARA by means of automated exposure control. FINDINGS: CT ABDOMEN: Lung Bases: Clear. Liver: No significant abnormality. Biliary: Stable cholecystectomy changes. No biliary dilatation. Spleen: No significant abnormality. Unenlarged. Pancreas: No significant abnormality. Adrenals: No significant abnormality. Kidneys: Scattered punctate renal calyceal stones are again noted. No hydronephrosis. Lymphatics: No lymphadenopathy. Vasculature: Stable mild atherosclerotic disease. Bowel/Peritoneum: Oral contrast is present in the stomach and most of the small bowel loops. There ap pears to be mild interval decrease in small bowel dilatation since the exam 4 days ago. Terminal smal l bowel loops and colon appear decompressed. The transition point is not clearly identified but appea rs to be in the distal small bowel in the right lower quadrant. No evidence for free fluid, free air or fluid collection. CT PELVIS: : The bladder is decompressed but grossly unremarkable. Hysterectomy changes. Osseous Structures: Osteopenia, mild levocurvature of the lumbar spine and moderate lumbar spondylosi s are stable. Additional Findings: None IMPRESSION: Minimal improvement in small bowel dilatation is demonstrated since 11/19/2021 exam. No new acute proc ess. Signer Name: Micheal Dugan Jr, MD Signed: 11/23/2021 12:29 PM Workstation Name: [id number]
[2021-11-23] MEDS: MORPHINE 2 MG/1 ML INJ IV PRN (14:32)
[2021-11-23] MEDS: PANTOPRAZOLE 40 MG INJ IV SCH ×2 (14:39→21:28)
[2021-11-23] MEDS: HEPARIN 5,000 UNIT/1 ML VIAL SUB-Q SCH ×2 (14:39→21:28)
[2021-11-23] MEDS ORDERED: POTASSIUM PHOSPHATE 45 MMOL in SODIUM CHLORIDE 0.9% 500 ML 500 ML IV ONE (15:00)
--- NOTE | 2021-11-23 15:42 | XRay Report ---
XR abdomen 1V ap INDICATION: VERIFICATION OF NG TUBE PLACEMENT. COMPARISON: 11/23/2021 FINDINGS: The tip of the esophagogastric tube projects over the body of the stomach. Signer Name: Garcia Hernandez MD Signed: 11/23/2021 3:34 PM Workstation Name: [id number]
[2021-11-23] MEDS ORDERED: ZOLPIDEM 5 MG TAB PO PRN (21:18)
[2021-11-23] MEDS: hydrALAZINE 20 MG/1 ML INJ IV PRN (21:20)
[2021-11-23] MEDS ORDERED: LORazepam 2 MG/ML VIAL IV ONE (21:43)
[2021-11-24] MEDS: METOPROLOL TARTRATE 5 MG/5 ML INJ IV SCH ×3 (00:52→05:50)
[2021-11-24] MEDS: METOCLOPRAMIDE 10 MG/2 ML INJ IV SCH ×5 (00:53→23:36)
[2021-11-24 06:07] LABS: Blood Urea Nitrogen 10 mg/dL (7-17); Calcium 9.3 mg/dL (8.4-10.2); Hemolysis Index 2
[2021-11-24 06:09] LABS: BUN/Creatinine Ratio 14
--- NOTE | 2021-11-24 08:06 | Progress Note ---
Assessment and Plan Assessment and plan: #Distal small bowel obstruction #SIRSresolved #Leukocytosisresolved CT abdomen/pelvis with contrast on admission revealing moderate to high-grade distal SBO -repeat CT scan 11/23: minimal improvement in obstruction -discussed with Dr. Reyes, will start CLD and advance as tolerated; NGT discontinued for now -will continue IVFs for now -General Surgery following, assistance appreciated #History of gastric ulcer Continue IV PPI; patient normally takes Protonix at home #COPD -not in acute exacerbation currently -continue DuoNebs and albuterol nebs as needed #Hypokalemia #Hypophosphatemia -Potassium 3.0, will continue to replete and monitor -magnesium and phosphorus levels ordered and repleted #Hypercalcemiaresolved Likely secondary to decreased volume status and possible hemo-concentration Continue IV fluid resuscitation. Monitor with repeat labs. #Advanced care planning -Disease education conducted, care plan discussed, diagnoses discussed, prognosis discussed, and patient acknowledges understanding with care plan -Time: +30min spent with patient History Interval history: NG tube fell out again while patient was asleep. No current nausea or vomiting. She has no other complaints at this time. Hospitalist Physical - Physical exam Narrative exam: GENERAL: Thin woman. In no acute distress. CHEST/LUNGS: CTAB on room air HEART/CARDIOVASCULAR: RRR. No murmur, rubs or gallops appreciated. ABDOMEN: +BS. NT/ND. SKIN: No rashes noted. NEURO: No focal motor deficit. Follows all commands. MUSCULOSKELETAL: No joint effusion EXTREMITIES: No cyanosis, clubbing or edema. PSYCH: Cooperative. - Constitutional Vitals: Temp Pulse Resp BP Pulse Ox 98.5 F 87 18 140/101 97 11/24/21 04:30 11/24/21 05:50 11/24/21 04:30 11/24/21 05:50 11/24/21 04:30 General appearance: Present: mild distress, cachectic Results - Labs CBC & Chem 7: 11/23/21 05:53 11/24/21 05:14 Labs: Laboratory Last Values WBC 11.1 K/mm3 (4.5-11.0) H 11/23/21 05:53 RBC 3.76 M/mm3 (3.65-5.03) 11/23/21 05:53 Hgb 13.0 gm/dl (10.1-14.3) 11/23/21 05:53 Hct 36.9 % (30.3-42.9) 11/23/21 05:53 MCV 98 fl (79-97) H 11/23/21 05:53 MCH 35 pg (28-32) H 11/23/21 05:53 MCHC 35 % (30-34) H 11/23/21 05:53 RDW 13.4 % (13.2-15.2) 11/23/21 05:53 Plt Count 210 K/mm3 (140-440) 11/23/21 05:53 Lymph % (Auto) 18.8 % (13.4-35.0) 11/23/21 05:53 [place] % (Auto) 7.5 % (0.0-7.3) H 11/23/21 05:53 Eos % (Auto) 0.9 % (0.0-4.3) 11/23/21 05:53 Baso % (Auto) 0.3 % (0.0-1.8) 11/23/21 05:53 Lymph # (Auto) 2.1 K/mm3 (1.2-5.4) 11/23/21 05:53 [place] # (Auto) 0.8 K/mm3 (0.0-0.8) 11/23/21 05:53 Eos # (Auto) 0.1 K/mm3 (0.0-0.4) 11/23/21 05:53 Baso # (Auto) 0.0 K/mm3 (0.0-0.1) 11/23/21 05:53 Add Manual Diff Complete 11/17/21 07:42 Total Counted 100 11/17/21 07:42 Seg Neutrophils % 72.5 % (40.0-70.0) H 11/23/21 05:53 Seg Neuts % (Manual) 93.0 % (40.0-70.0) H 11/17/21 07:42 Band Neutrophils % 0 % 11/17/21 07:42 Lymphocytes % (Manual) 5.0 % (13.4-35.0) L 11/17/21 07:42 Reactive Lymphs % (Man) 0 % 11/17/21 07:42 Monocytes % (Manual) 2.0 % (0.0-7.3) 11/17/21 07:42 Eosinophils % (Manual) 0 % (0.0-4.3) 11/17/21 07:42 Basophils % (Manual) 0 % (0.0-1.8) 11/17/21 07:42 Metamyelocytes % 0 % 11/17/21 07:42 Myelocytes % 0 % 11/17/21 07:42 Promyelocytes % 0 % 11/17/21 07:42 Blast Cells % 0 % 11/17/21 07:42 Nucleated RBC % Not Reportable 11/17/21 07:42 Seg Neutrophils # 8.1 K/mm3 (1.8-7.7) H 11/23/21 05:53 Seg Neutrophils # Man 16.0 K/mm3 (1.8-7.7) H 11/17/21 07:42 Band Neutrophils # 0.0 K/mm3 11/17/21 07:42 Lymphocytes # (Manual) 0.9 K/mm3 (1.2-5.4) L 11/17/21 07:42 Abs React Lymphs (Man) 0.0 K/mm3 11/17/21 07:42 Monocytes # (Manual) 0.3 K/mm3 (0.0-0.8) 11/17/21 07:42 Eosinophils # (Manual) 0.0 K/mm3 (0.0-0.4) 11/17/21 07:42 Basophils # (Manual) 0.0 K/mm3 (0.0-0.1) 11/17/21 07:42 Metamyelocytes # 0.0 K/mm3 11/17/21 07:42 Myelocytes # 0.0 K/mm3 11/17/21 07:42 Promyelocytes # 0.0 K/mm3 11/17/21 07:42 Blast Cells # 0.0 K/mm3 11/17/21 07:42 WBC Morphology Not Reportable 11/17/21 07:42 Hypersegmented Neuts Not Reportable 11/17/21 07:42 Hyposegmented Neuts Not Reportable 11/17/21 07:42 Hypogranular Neuts Not Reportable 11/17/21 07:42 Smudge Cells Not Reportable 11/17/21 07:42 Toxic Granulation Not Reportable 11/17/21 07:42 Toxic Vacuolation Not Reportable 11/17/21 07:42 Dohle Bodies Not Reportable 11/17/21 07:42 Pelger-Huet Anomaly Not Reportable 11/17/21 07:42 Rekha Rods Not Reportable 11/17/21 07:42 Platelet Estimate Consistent w auto 11/17/21 07:42 Clumped Platelets Not Reportable 11/17/21 07:42 Plt Clumps, EDTA Not Reportable 11/17/21 07:42 Large Platelets Not Reportable 11/17/21 07:42 Giant Platelets Not Reportable 11/17/21 07:42 Platelet Satelliting Not Reportable 11/17/21 07:42 Plt Morphology Comment Not Reportable 11/17/21 07:42 RBC Morphology Normal 11/17/21 07:42 Dimorphic RBCs Not Reportable 11/17/21 07:42 Polychromasia Not Reportable 11/17/21 07:42 Hypochromasia Not Reportable 11/17/21 07:42 Poikilocytosis Not Reportable 11/17/21 07:42 Anisocytosis Not Reportable 11/17/21 07:42 Microcytosis Not Reportable 11/17/21 07:42 Macrocytosis Not Reportable 11/17/21 07:42 Spherocytes Not Reportable 11/17/21 07:42 Pappenheimer Bodies Not Reportable 11/17/21 07:42 Sickle Cells Not Reportable 11/17/21 07:42 Target Cells Not Reportable 11/17/21 07:42 Tear Drop Cells Not Reportable 11/17/21 07:42 Ovalocytes Not Reportable 11/17/21 07:42 Helmet Cells Not Reportable 11/17/21 07:42 Maza-Misenheimer Bodies Not Reportable 11/17/21 07:42 Orange Rings Not Reportable 11/17/21 07:42 Dalton Cells Not Reportable 11/17/21 07:42 Bite Cells Not Reportable 11/17/21 07:42 Crenated Cell Not Reportable 11/17/21 07:42 Elliptocytes Not Reportable 11/17/21 07:42 Acanthocytes (Spur) Not Reportable 11/17/21 07:42 Rouleaux Not Reportable 11/17/21 07:42 Hemoglobin C Crystals Not Reportable 11/17/21 07:42 Schistocytes Not Reportable 11/17/21 07:42 Malaria parasites Not Reportable 11/17/21 07:42 Behzad Bodies Not Reportable 11/17/21 07:42 Hem Pathologist Commnt No 11/17/21 07:42 PT 15.0 Sec. (12.2-14.9) H 11/23/21 05:53 INR 1.06 (0.87-1.13) 11/23/21 05:53 Sodium 143 mmol/L (137-145) 11/24/21 05:14 Potassium 3.0 mmol/L (3.6-5.0) L D 11/24/21 05:14 Chloride 109.6 mmol/L (98-107) H 11/24/21 05:14 Carbon Dioxide 19 mmol/L (22-30) L 11/24/21 05:14 Anion Gap 17 mmol/L 11/24/21 05:14 BUN 10 mg/dL (7-17) 11/24/21 05:14 Creatinine 0.7 mg/dL (0.6-1.2) 11/24/21 05:14 Estimated GFR > 60 ml/min 11/24/21 05:14 BUN/Creatinine Ratio 14 % 11/24/21 05:14 Glucose 92 mg/dL (65-100) 11/24/21 05:14 POC Glucose 121 mg/dL (70-105) H 11/19/21 22:58 Calcium 9.3 mg/dL (8.4-10.2) 11/24/21 05:14 Phosphorus 3.90 mg/dL (2.5-4.5) D 11/24/21 05:14 Magnesium 1.70 mg/dL (1.7-2.3) 11/24/21 05:14 Total Bilirubin 1.00 mg/dL (0.1-1.2) 11/17/21 07:35 Direct Bilirubin 0.3 mg/dL (0-0.2) H 11/17/21 07:35 Indirect Bilirubin 0.7 mg/dL 11/17/21 07:35 AST 15 units/L (5-40) 11/17/21 07:35 ALT 8 units/L (7-56) 11/17/21 07:35 Alkaline Phosphatase 52 units/L (35-129) 11/17/21 07:35 Total Protein 8.9 g/dL (6.3-8.2) H 11/17/21 07:35 Albumin 5.3 g/dL (3.9-5) H 11/17/21 07:35 Albumin/Globulin Ratio 1.5 % 11/17/21 07:35 Lipase 13 units/L (13-60) 11/17/21 07:35 Mccallum/IV: Voiding Method Bedside Commode Active Medications - Current Medications Current Medications: Generic Name Dose Route Start Last Admin Trade Name Freq PRN Reason Stop Dose Admin Acetaminophen 650 mg 11/17/21 11:44 11/18/21 12:06 Acetaminophen 325 Mg Tab PO 650 mg Q4H PRN Administration Pain MILD(1-3)/Fever >100.5/CRUZ Albuterol 2.5 mg 11/20/21 21:30 Albuterol 2.5 Mg/3 Ml Nebu IH Q4HRT PRN Shortness Of Breath Heparin Sodium (Porcine) 5,000 unit 11/17/21 22:00 11/23/21 21:28 Heparin 5,000 Unit/1 Ml Vial SUB-Q 5,000 unit BID EMILY Administration Hydralazine HCl 10 mg 11/19/21 21:28 11/23/21 21:20 Hydralazine 20 Mg/1 Ml Inj IV 10 mg Q6HR PRN Administration Hypertension Hydromorphone HCl 0.5 mg 11/17/21 11:44 11/22/21 22:23 Hydromorphone 1 Mg/1 Ml Inj IV 0.5 mg Q3H PRN Administration Pain , Severe (7-10) Dextrose/Sodium Chloride 1,000 mls @ 125 mls/hr 11/17/21 12:00 11/23/21 06:37 D5ns IV 75 mls/hr DIRECT EMILY Administration Metoclopramide HCl 5 mg 11/22/21 11:00 11/24/21 05:44 Metoclopramide 10 Mg/2 Ml Inj IV 5 mg Q6HR EMILY Administration Metoprolol Tartrate 5 mg 11/19/21 00:00 11/24/21 05:50 Metoprolol Tartrate 5 Mg/5 Ml Inj IV 5 mg Q6HR EMILY Administration Morphine Sulfate 2 mg 11/17/21 11:44 11/23/21 14:32 Morphine 2 Mg/1 Ml Inj IV 2 mg Q6H PRN Administration Pain, Moderate (4-6) Pantoprazole Sodium 40 mg 11/17/21 22:00 11/23/21 21:28 Pantoprazole 40 Mg Inj IV 40 mg BID EMILY Administration Promethazine HCl 25 mg 11/21/21 19:24 Promethazine 25 Mg Rect Supp MT Q6H PRN Nausea And Vomiting Sodium Chloride 10 ml 11/17/21 12:00 11/23/21 21:28 Sodium Chloride 0.9% 10 Ml Flush Syringe IV 10 ml BID EMILY Administration Sodium Chloride 10 ml 11/17/21 11:44 Sodium Chloride 0.9% 10 Ml Flush Syringe IV PRN PRN LINE FLUSH Nutrition/Malnutrition Assess - Dietary Evaluation Nutrition/Malnutrition Findings: Nutrition Notes Start: 11/18/21 16:04 Freq: Status: Active Protocol: Document 11/18/21 16:04 JAYCOB (Rec: 11/18/21 16:35 [email or web address] [id number]) Nutrition Notes Need for Assessment generated from: MD Order,Low BMI Initial or Follow up Assessment Current Diagnosis COPD,Small Bowel Obstruction Other Pertinent Diagnosis N/V/Abdominal Pain, SIRS, Leukocytosis, Gastric Ulcer, Hyperglycemia. Current Diet NPO (since 11/17 11:45). Labs/Tests 11/18: Na 136, BUN 24, Glu 142. Pertinent Medications 11/18: D5ns 1000 ml @ 75 ml/hr , others nutritionally unremarkable. Height 5 ft 7 in Weight 52.16 kg [place] Body Weight (kg) 61.36 BMI 18.0 Weight change and time frame None reported at admission. Weight Status Underweight Subjective/Other Information RD consult for Low BMI assessment and dietary supplementation needs. Pt to remain NPO until SBO resolves, according to Progress notes. Pt refusing NG tube placement, according to RN notes. Pt has missing teeth, according to Physical Assessment History notes. Pt's Low BMI seems to correspond to a natural body composition, and not related to a sudden loss of body weight nor chronic malnutrition, since none were mentioned in the Physical Assessment History or the Progress notes. Percent of energy/protein needs met: Pt currently on NPO. Burn Absent Trauma Absent GI Symptoms Nausea,Vomiting,Other Food Allergy No Skin Integrity/Comment Assessment WNL. Minimum of two criteria No #1 Nutrition Diagnosis Altered GI function Comments: Pt to remain NPO until SBO resolves, according to Progress notes. Will reassess at F/U. Etiology Uncertain. As Evidenced by Signs and Symptoms N/V/Abdominal Pain. Is patient on ventilator? No Is Patient Ambulatory and/or Out of Bed Yes REE-([facility]-ambulatory/OOB) [ 1344.499 [id number]] Kcal/Kg value to use for calculation 33 Approximate Energy Requirements Using 1721 kcal/Kg Calculation Used for Recommendations Kcal/kg Additional Notes Protein: 1-1.2 g/Kg IBW; 61-73 g/day. Fluids: 1 ml/Kcal, or as per MD. Nutrition Intervention Change Diet Order: Advance to Clear Liquids Diet as soon as SBO resolves. Add Supplement/Snack (indicate name/kcal When pertinent, start 8 fl oz /protein ) Ensure Clear; TID. Provides kCal: 720 Provides Protein (gm) 24 Goal #1 Compensate, through dietary supplementation, for possible poor or insufficient PO intake of meals during LOS. Goal #2 Maintain body weight within +/ -3% of admission body weight during LOS. Follow-Up By: 11/25/21 Additional Comments When pertinent, start monitoring food and ONS tolerance, %PO intake of meals , and BM.
[2021-11-24] MEDS: POTASSIUM CHLORIDE 10 MEQ 10 MEQ/100 ML BAG IV SCH ×4 (09:30→14:23)
[2021-11-24] MEDS: PANTOPRAZOLE 40 MG INJ IV SCH ×2 (10:26→21:14)
[2021-11-24] MEDS: HEPARIN 5,000 UNIT/1 ML VIAL SUB-Q SCH ×2 (10:26→21:14)
[2021-11-24] MEDS: D5W/0.9% NACL 1,000 ML IV SCH ×2 (11:15→21:22)
[2021-11-24] MEDS: hydrALAZINE 20 MG/1 ML INJ IV PRN (12:44)
[2021-11-24] MEDS ORDERED: POTASSIUM CHLORIDE ER 20 MEQ TAB PO NR (13:00)
--- NOTE | 2021-11-24 16:37 | Progress Note ---
Assessment and Plan CT abdo with small bowel obstruction. Pt with prior surgery. Patient notes that hysterectomy was complicated with a bowel injury. She also notes that she has had several prior admissions for bowel obstruction secondary to adhesions manag ed conservatively. DC NG try clear liquids today Subjective Date of service: 11/24/21 Patient Reports: Positive: no new complaints, feels better, flatus, no bowel movement Narrative: Patient accidentally removed NG tube this morning. She states that she is feeling well and passing large amount of flatus. She has not had a BM in 2 days. We will advance to clear liquid diet and observe for now. Objective Vital Signs - 12hr 11/24/21 11/24/21 11/24/21 05:50 12:14 12:44 Temperature 98.0 F Pulse Rate 87 93 H 93 H Respiratory 18 Rate Blood Pressure 140/101 173/81 173/81 O2 Sat by Pulse 98 Oximetry - Labs 11/23/21 05:53 11/24/21 05:14 Diabetes panel 11/23/21 11/24/21 Range/Units 23:35 05:14 Sodium 143 (137-145) mmol/L Potassium 4.0 D 3.0 L D (3.6-5.0) mmol/L Chloride 109.6 H (98-107) mmol/L Carbon Dioxide 19 L (22-30) mmol/L BUN 10 (7-17) mg/dL Creatinine 0.7 (0.6-1.2) mg/dL Glucose 92 (65-100) mg/dL Calcium 9.3 (8.4-10.2) mg/dL Calcium panel 11/24/21 Range/Units 05:14 Calcium 9.3 (8.4-10.2) mg/dL Phosphorus 3.90 D (2.5-4.5) mg/dL Pituitary panel 11/23/21 11/24/21 Range/Units 23:35 05:14 Sodium 143 (137-145) mmol/L Potassium 4.0 D 3.0 L D (3.6-5.0) mmol/L Chloride 109.6 H (98-107) mmol/L Carbon Dioxide 19 L (22-30) mmol/L BUN 10 (7-17) mg/dL Creatinine 0.7 (0.6-1.2) mg/dL Glucose 92 (65-100) mg/dL Calcium 9.3 (8.4-10.2) mg/dL Adrenal panel 11/23/21 11/24/21 Range/Units 23:35 05:14 Sodium 143 (137-145) mmol/L Potassium 4.0 D 3.0 L D (3.6-5.0) mmol/L Chloride 109.6 H (98-107) mmol/L Carbon Dioxide 19 L (22-30) mmol/L BUN 10 (7-17) mg/dL Creatinine 0.7 (0.6-1.2) mg/dL Glucose 92 (65-100) mg/dL Calcium 9.3 (8.4-10.2) mg/dL
[2021-11-24] MEDS: traZODone 100 MG TAB PO SCH (21:14)
[2021-11-24] MEDS: METOPROLOL TARTRATE 25 MG TAB PO SCH (21:21)
[2021-11-25] MEDS: D5W/0.9% NACL 1,000 ML IV SCH (05:05)
[2021-11-25] MEDS: METOCLOPRAMIDE 10 MG/2 ML INJ IV SCH ×4 (05:06→23:29)
[2021-11-25 08:02] LABS: Blood Urea Nitrogen 5 mg/dL (7-17); Calcium 8.4 mg/dL (8.4-10.2); Hemolysis Index 4
[2021-11-25 08:03] LABS: BUN/Creatinine Ratio 7
[2021-11-25] MEDS: HEPARIN 5,000 UNIT/1 ML VIAL SUB-Q SCH ×2 (10:50→22:28)
[2021-11-25] MEDS: PANTOPRAZOLE 40 MG INJ IV SCH ×2 (10:50→22:28)
[2021-11-25] MEDS: METOPROLOL TARTRATE 25 MG TAB PO SCH ×2 (10:50→22:26)
--- NOTE | 2021-11-25 12:09 | Progress Note ---
Assessment and Plan Assessment and plan: #Distal small bowel obstruction #SIRSresolved #Leukocytosisresolved CT abdomen/pelvis with contrast on admission revealing moderate to high-grade distal SBO -repeat CT scan 11/23: minimal improvement in obstruction -Tolerating clear liquid diet, will advance as tolerated -IVFs discontinued -General Surgery following, assistance appreciated #History of gastric ulcer Continue IV PPI; patient normally takes Protonix at home #COPD -not in acute exacerbation currently -continue DuoNebs and albuterol nebs as needed #Hypokalemia #Hypophosphatemia -will continue to replete and monitor #Hypercalcemiaresolved Likely secondary to decreased volume status and possible hemo-concentration Continue IV fluid resuscitation. Monitor with repeat labs. #Advanced care planning -Disease education conducted, care plan discussed, diagnoses discussed, prognosis discussed, and patient acknowledges understanding with care plan -Time: +30min spent with patient History Interval history: No acute events overnight. The patient tolerated clear liquid diet for the last 24 hours. She denies nausea or vomiting. She did have 1 bowel movement along with flatus. She has no other complaints at this time. Hospitalist Physical - Physical exam Narrative exam: GENERAL: Thin woman. In no acute distress. CHEST/LUNGS: CTAB on room air HEART/CARDIOVASCULAR: RRR. No murmur, rubs or gallops appreciated. ABDOMEN: +BS. NT/ND. SKIN: No rashes noted. NEURO: No focal motor deficit. Follows all commands. MUSCULOSKELETAL: No joint effusion EXTREMITIES: No cyanosis, clubbing or edema. PSYCH: Cooperative. - Constitutional Vitals: Temp Pulse Resp BP Pulse Ox 98.6 F 89 18 151/76 97 11/25/21 04:47 11/25/21 10:50 11/25/21 04:47 11/25/21 10:50 11/25/21 04:47 General appearance: Present: mild distress, cachectic Results - Labs CBC & Chem 7: 11/23/21 05:53 11/25/21 07:16 Labs: Laboratory Last Values WBC 11.1 K/mm3 (4.5-11.0) H 11/23/21 05:53 RBC 3.76 M/mm3 (3.65-5.03) 11/23/21 05:53 Hgb 13.0 gm/dl (10.1-14.3) 11/23/21 05:53 Hct 36.9 % (30.3-42.9) 11/23/21 05:53 MCV 98 fl (79-97) H 11/23/21 05:53 MCH 35 pg (28-32) H 11/23/21 05:53 MCHC 35 % (30-34) H 11/23/21 05:53 RDW 13.4 % (13.2-15.2) 11/23/21 05:53 Plt Count 210 K/mm3 (140-440) 11/23/21 05:53 Lymph % (Auto) 18.8 % (13.4-35.0) 11/23/21 05:53 Patrick % (Auto) 7.5 % (0.0-7.3) H 11/23/21 05:53 Eos % (Auto) 0.9 % (0.0-4.3) 11/23/21 05:53 Baso % (Auto) 0.3 % (0.0-1.8) 11/23/21 05:53 Lymph # (Auto) 2.1 K/mm3 (1.2-5.4) 11/23/21 05:53 Patrick # (Auto) 0.8 K/mm3 (0.0-0.8) 11/23/21 05:53 Eos # (Auto) 0.1 K/mm3 (0.0-0.4) 11/23/21 05:53 Baso # (Auto) 0.0 K/mm3 (0.0-0.1) 11/23/21 05:53 Add Manual Diff Complete 11/17/21 07:42 Total Counted 100 11/17/21 07:42 Seg Neutrophils % 72.5 % (40.0-70.0) H 11/23/21 05:53 Seg Neuts % (Manual) 93.0 % (40.0-70.0) H 11/17/21 07:42 Band Neutrophils % 0 % 11/17/21 07:42 Lymphocytes % (Manual) 5.0 % (13.4-35.0) L 11/17/21 07:42 Reactive Lymphs % (Man) 0 % 11/17/21 07:42 Monocytes % (Manual) 2.0 % (0.0-7.3) 11/17/21 07:42 Eosinophils % (Manual) 0 % (0.0-4.3) 11/17/21 07:42 Basophils % (Manual) 0 % (0.0-1.8) 11/17/21 07:42 Metamyelocytes % 0 % 11/17/21 07:42 Myelocytes % 0 % 11/17/21 07:42 Promyelocytes % 0 % 11/17/21 07:42 Blast Cells % 0 % 11/17/21 07:42 Nucleated RBC % Not Reportable 11/17/21 07:42 Seg Neutrophils # 8.1 K/mm3 (1.8-7.7) H 11/23/21 05:53 Seg Neutrophils # Man 16.0 K/mm3 (1.8-7.7) H 11/17/21 07:42 Band Neutrophils # 0.0 K/mm3 11/17/21 07:42 Lymphocytes # (Manual) 0.9 K/mm3 (1.2-5.4) L 11/17/21 07:42 Abs React Lymphs (Man) 0.0 K/mm3 11/17/21 07:42 Monocytes # (Manual) 0.3 K/mm3 (0.0-0.8) 11/17/21 07:42 Eosinophils # (Manual) 0.0 K/mm3 (0.0-0.4) 11/17/21 07:42 Basophils # (Manual) 0.0 K/mm3 (0.0-0.1) 11/17/21 07:42 Metamyelocytes # 0.0 K/mm3 11/17/21 07:42 Myelocytes # 0.0 K/mm3 11/17/21 07:42 Promyelocytes # 0.0 K/mm3 11/17/21 07:42 Blast Cells # 0.0 K/mm3 11/17/21 07:42 WBC Morphology Not Reportable 11/17/21 07:42 Hypersegmented Neuts Not Reportable 11/17/21 07:42 Hyposegmented Neuts Not Reportable 11/17/21 07:42 Hypogranular Neuts Not Reportable 11/17/21 07:42 Smudge Cells Not Reportable 11/17/21 07:42 Toxic Granulation Not Reportable 11/17/21 07:42 Toxic Vacuolation Not Reportable 11/17/21 07:42 Dohle Bodies Not Reportable 11/17/21 07:42 Pelger-Huet Anomaly Not Reportable 11/17/21 07:42 Rekha Rods Not Reportable 11/17/21 07:42 Platelet Estimate Consistent w auto 11/17/21 07:42 Clumped Platelets Not Reportable 11/17/21 07:42 Plt Clumps, EDTA Not Reportable 11/17/21 07:42 Large Platelets Not Reportable 11/17/21 07:42 Giant Platelets Not Reportable 11/17/21 07:42 Platelet Satelliting Not Reportable 11/17/21 07:42 Plt Morphology Comment Not Reportable 11/17/21 07:42 RBC Morphology Normal 11/17/21 07:42 Dimorphic RBCs Not Reportable 11/17/21 07:42 Polychromasia Not Reportable 11/17/21 07:42 Hypochromasia Not Reportable 11/17/21 07:42 Poikilocytosis Not Reportable 11/17/21 07:42 Anisocytosis Not Reportable 11/17/21 07:42 Microcytosis Not Reportable 11/17/21 07:42 Macrocytosis Not Reportable 11/17/21 07:42 Spherocytes Not Reportable 11/17/21 07:42 Pappenheimer Bodies Not Reportable 11/17/21 07:42 Sickle Cells Not Reportable 11/17/21 07:42 Target Cells Not Reportable 11/17/21 07:42 Tear Drop Cells Not Reportable 11/17/21 07:42 Ovalocytes Not Reportable 11/17/21 07:42 Helmet Cells Not Reportable 11/17/21 07:42 Maza-[place] Bodies Not Reportable 11/17/21 07:42 [place] Rings Not Reportable 11/17/21 07:42 [place] Cells Not Reportable 11/17/21 07:42 Bite Cells Not Reportable 11/17/21 07:42 Crenated Cell Not Reportable 11/17/21 07:42 Elliptocytes Not Reportable 11/17/21 07:42 Acanthocytes (Spur) Not Reportable 11/17/21 07:42 Rouleaux Not Reportable 11/17/21 07:42 Hemoglobin C Crystals Not Reportable 11/17/21 07:42 Schistocytes Not Reportable 11/17/21 07:42 Malaria parasites Not Reportable 11/17/21 07:42 Behzad Bodies Not Reportable 11/17/21 07:42 Hem Pathologist Commnt No 11/17/21 07:42 PT 15.0 Sec. (12.2-14.9) H 11/23/21 05:53 INR 1.06 (0.87-1.13) 11/23/21 05:53 Sodium 139 mmol/L (137-145) 11/25/21 07:16 Potassium 3.8 mmol/L (3.6-5.0) D 11/25/21 07:16 Chloride 111.4 mmol/L (98-107) H 11/25/21 07:16 Carbon Dioxide 15 mmol/L (22-30) L 11/25/21 07:16 Anion Gap 16 mmol/L 11/25/21 07:16 BUN 5 mg/dL (7-17) L 11/25/21 07:16 Creatinine 0.7 mg/dL (0.6-1.2) 11/25/21 07:16 Estimated GFR > 60 ml/min 11/25/21 07:16 BUN/Creatinine Ratio 7 % 11/25/21 07:16 Glucose 129 mg/dL (65-100) H 11/25/21 07:16 POC Glucose 121 mg/dL (70-105) H 11/19/21 22:58 Calcium 8.4 mg/dL (8.4-10.2) 11/25/21 07:16 Phosphorus 3.90 mg/dL (2.5-4.5) D 11/24/21 05:14 Magnesium 1.70 mg/dL (1.7-2.3) 11/24/21 05:14 Total Bilirubin 1.00 mg/dL (0.1-1.2) 11/17/21 07:35 Direct Bilirubin 0.3 mg/dL (0-0.2) H 11/17/21 07:35 Indirect Bilirubin 0.7 mg/dL 11/17/21 07:35 AST 15 units/L (5-40) 11/17/21 07:35 ALT 8 units/L (7-56) 11/17/21 07:35 Alkaline Phosphatase 52 units/L (35-129) 11/17/21 07:35 Total Protein 8.9 g/dL (6.3-8.2) H 11/17/21 07:35 Albumin 5.3 g/dL (3.9-5) H 11/17/21 07:35 Albumin/Globulin Ratio 1.5 % 11/17/21 07:35 Lipase 13 units/L (13-60) 11/17/21 07:35 Mccallum/IV: Voiding Method Bedside Commode Active Medications - Current Medications Current Medications: Generic Name Dose Route Start Last Admin Trade Name Freq PRN Reason Stop Dose Admin Acetaminophen 650 mg 11/17/21 11:44 11/18/21 12:06 Acetaminophen 325 Mg Tab PO 650 mg Q4H PRN Administration Pain MILD(1-3)/Fever >100.5/CRUZ Albuterol 2.5 mg 11/20/21 21:30 Albuterol 2.5 Mg/3 Ml Nebu IH Q4HRT PRN Shortness Of Breath Heparin Sodium (Porcine) 5,000 unit 11/17/21 22:00 11/25/21 10:50 Heparin 5,000 Unit/1 Ml Vial SUB-Q 5,000 unit BID EMILY Administration Hydralazine HCl 10 mg 11/19/21 21:28 11/24/21 12:44 Hydralazine 20 Mg/1 Ml Inj IV 10 mg Q6HR PRN Administration Hypertension Hydromorphone HCl 0.5 mg 11/17/21 11:44 11/22/21 22:23 Hydromorphone 1 Mg/1 Ml Inj IV 0.5 mg Q3H PRN Administration Pain , Severe (7-10) Metoclopramide HCl 5 mg 11/22/21 11:00 11/25/21 05:06 Metoclopramide 10 Mg/2 Ml Inj IV 5 mg Q6HR EMILY Administration Metoprolol Tartrate 12.5 mg 11/24/21 22:00 11/25/21 10:50 Metoprolol Tartrate 25 Mg Tab PO 12.5 mg BID EMILY Administration Morphine Sulfate 2 mg 11/17/21 11:44 11/23/21 14:32 Morphine 2 Mg/1 Ml Inj IV 2 mg Q6H PRN Administration Pain, Moderate (4-6) Pantoprazole Sodium 40 mg 11/17/21 22:00 11/25/21 10:50 Pantoprazole 40 Mg Inj IV 11/25/21 23:59 40 mg BID EMILY Administration Pantoprazole Sodium 40 mg 11/26/21 07:30 Pantoprazole 40 Mg Tab PO BIDAC EMILY Promethazine HCl 25 mg 11/21/21 19:24 Promethazine 25 Mg Rect Supp [place] Q6H PRN Nausea And Vomiting Sodium Chloride 10 ml 11/17/21 12:00 11/25/21 10:52 Sodium Chloride 0.9% 10 Ml Flush Syringe IV 10 ml BID EMILY Administration Sodium Chloride 10 ml 11/17/21 11:44 Sodium Chloride 0.9% 10 Ml Flush Syringe IV PRN PRN LINE FLUSH Trazodone HCl 100 mg 11/24/21 22:00 11/24/21 21:14 Trazodone 100 Mg Tab PO 100 mg QHS EMILY Administration Nutrition/Malnutrition Assess - Dietary Evaluation Nutrition/Malnutrition Findings: Nutrition Notes Start: 11/18/21 16:04 Freq: Status: Active Protocol: Document 11/18/21 16:04 JAYCOB (Rec: 11/18/21 16:35 JAYCOB [id number]) Nutrition Notes Need for Assessment generated from: MD Order,Low BMI Initial or Follow up Assessment Current Diagnosis COPD,Small Bowel Obstruction Other Pertinent Diagnosis N/V/Abdominal Pain, SIRS, Leukocytosis, Gastric Ulcer, Hyperglycemia. Current Diet NPO (since 11/17 11:45). Labs/Tests 11/18: Na 136, BUN 24, Glu 142. Pertinent Medications 11/18: D5ns 1000 ml @ 75 ml/hr , others nutritionally unremarkable. Height 5 ft 7 in Weight 52.16 kg [place] Body Weight (kg) 61.36 BMI 18.0 Weight change and time frame None reported at admission. Weight Status Underweight Subjective/Other Information RD consult for Low BMI assessment and dietary supplementation needs. Pt to remain NPO until SBO resolves, according to Progress notes. Pt refusing NG tube placement, according to RN notes. Pt has missing teeth, according to Physical Assessment History notes. Pt's Low BMI seems to correspond to a natural body composition, and not related to a sudden loss of body weight nor chronic malnutrition, since none were mentioned in the Physical Assessment History or the Progress notes. Percent of energy/protein needs met: Pt currently on NPO. Burn Absent Trauma Absent GI Symptoms Nausea,Vomiting,Other Food Allergy No Skin Integrity/Comment Assessment WNL. Minimum of two criteria No #1 Nutrition Diagnosis Altered GI function Comments: Pt to remain NPO until SBO resolves, according to Progress notes. Will reassess at F/U. Etiology Uncertain. As Evidenced by Signs and Symptoms N/V/Abdominal Pain. Is patient on ventilator? No Is Patient Ambulatory and/or Out of Bed Yes REE-([place]-St. Jeor-ambulatory/OOB) [ 1344.499 NUTR.MSJOOB] Kcal/Kg value to use for calculation 33 Approximate Energy Requirements Using 1721 kcal/Kg Calculation Used for Recommendations Kcal/kg Additional Notes Protein: 1-1.2 g/Kg IBW; 61-73 g/day. Fluids: 1 ml/Kcal, or as per MD. Nutrition Intervention Change Diet Order: Advance to Clear Liquids Diet as soon as SBO resolves. Add Supplement/Snack (indicate name/kcal When pertinent, start 8 fl oz /protein ) Ensure Clear; TID. Provides kCal: 720 Provides Protein (gm) 24 Goal #1 Compensate, through dietary supplementation, for possible poor or insufficient PO intake of meals during LOS. Goal #2 Maintain body weight within +/ -3% of admission body weight during LOS. Follow-Up By: 11/25/21 Additional Comments When pertinent, start monitoring food and ONS tolerance, %PO intake of meals , and BM.
[2021-11-25] MEDS: traZODone 100 MG TAB PO SCH (22:27)
[2021-11-25] MEDS: HYDROmorphone 1 MG/1 ML INJ IV PRN (22:39)
[2021-11-26] MEDS: METOCLOPRAMIDE 10 MG/2 ML INJ IV SCH ×2 (05:50→13:12)
[2021-11-26] MEDS ORDERED: PANTOPRAZOLE 40 MG TAB PO SCH (07:30)
[2021-11-26] MEDS: METOPROLOL TARTRATE 25 MG TAB PO SCH (10:39)
[2021-11-26] MEDS: HEPARIN 5,000 UNIT/1 ML VIAL SUB-Q SCH (10:39)
--- NOTE | 2021-11-26 11:29 | Progress Note ---
Assessment and Plan Assessment and plan: #Distal small bowel obstruction-improving #SIRSresolved #Leukocytosisresolved -CT abdomen/pelvis with contrast on admission revealing moderate to high-grade distal SBO -repeat CT scan 11/23: minimal improvement in obstruction -Tolerating clear liquid diet, will advance FLD -anticipate advancing to full diet for dinner, if tolerated will discharge home tomorrow -General Surgery following, assistance appreciated #History of gastric ulcer Continue IV PPI; patient normally takes Protonix at home #COPD -not in acute exacerbation currently -continue DuoNebs and albuterol nebs as needed #Hypokalemia #Hypophosphatemia -will continue to replete and monitor #Hypercalcemiaresolved Likely secondary to decreased volume status and possible hemo-concentration Continue IV fluid resuscitation. Monitor with repeat labs. #Advanced care planning -Disease education conducted, care plan discussed, diagnoses discussed, prognosis discussed, and patient acknowledges understanding with care plan -Time: +30min spent with patient History Interval history: No acute events overnight. The patient tolerated clear liquid diet, diet advanced to full liquids. She denies nausea or vomiting. She has had flatus and 2 bowel movements since yesterday. Hospitalist Physical - Physical exam Narrative exam: GENERAL: Thin woman. In no acute distress. CHEST/LUNGS: CTAB on room air HEART/CARDIOVASCULAR: RRR. No murmur, rubs or gallops appreciated. ABDOMEN: +BS. NT/ND. SKIN: No rashes noted. NEURO: No focal motor deficit. Follows all commands. MUSCULOSKELETAL: No joint effusion EXTREMITIES: No cyanosis, clubbing or edema. PSYCH: Cooperative. - Constitutional Vitals: Temp Pulse Resp BP Pulse Ox 99 F 88 18 149/79 95 11/26/21 06:00 11/26/21 10:39 11/26/21 05:28 11/26/21 10:39 11/26/21 05:28 General appearance: Present: mild distress, cachectic Results - Labs CBC & Chem 7: 11/23/21 05:53 11/25/21 07:16 Labs: Laboratory Last Values WBC 11.1 K/mm3 (4.5-11.0) H 11/23/21 05:53 RBC 3.76 M/mm3 (3.65-5.03) 11/23/21 05:53 Hgb 13.0 gm/dl (10.1-14.3) 11/23/21 05:53 Hct 36.9 % (30.3-42.9) 11/23/21 05:53 MCV 98 fl (79-97) H 11/23/21 05:53 MCH 35 pg (28-32) H 11/23/21 05:53 MCHC 35 % (30-34) H 11/23/21 05:53 RDW 13.4 % (13.2-15.2) 11/23/21 05:53 Plt Count 210 K/mm3 (140-440) 11/23/21 05:53 Lymph % (Auto) 18.8 % (13.4-35.0) 11/23/21 05:53 [place] % (Auto) 7.5 % (0.0-7.3) H 11/23/21 05:53 Eos % (Auto) 0.9 % (0.0-4.3) 11/23/21 05:53 Baso % (Auto) 0.3 % (0.0-1.8) 11/23/21 05:53 Lymph # (Auto) 2.1 K/mm3 (1.2-5.4) 11/23/21 05:53 [place] # (Auto) 0.8 K/mm3 (0.0-0.8) 11/23/21 05:53 Eos # (Auto) 0.1 K/mm3 (0.0-0.4) 11/23/21 05:53 Baso # (Auto) 0.0 K/mm3 (0.0-0.1) 11/23/21 05:53 Add Manual Diff Complete 11/17/21 07:42 Total Counted 100 11/17/21 07:42 Seg Neutrophils % 72.5 % (40.0-70.0) H 11/23/21 05:53 Seg Neuts % (Manual) 93.0 % (40.0-70.0) H 11/17/21 07:42 Band Neutrophils % 0 % 11/17/21 07:42 Lymphocytes % (Manual) 5.0 % (13.4-35.0) L 11/17/21 07:42 Reactive Lymphs % (Man) 0 % 11/17/21 07:42 Monocytes % (Manual) 2.0 % (0.0-7.3) 11/17/21 07:42 Eosinophils % (Manual) 0 % (0.0-4.3) 11/17/21 07:42 Basophils % (Manual) 0 % (0.0-1.8) 11/17/21 07:42 Metamyelocytes % 0 % 11/17/21 07:42 Myelocytes % 0 % 11/17/21 07:42 Promyelocytes % 0 % 11/17/21 07:42 Blast Cells % 0 % 11/17/21 07:42 Nucleated RBC % Not Reportable 11/17/21 07:42 Seg Neutrophils # 8.1 K/mm3 (1.8-7.7) H 11/23/21 05:53 Seg Neutrophils # Man 16.0 K/mm3 (1.8-7.7) H 11/17/21 07:42 Band Neutrophils # 0.0 K/mm3 11/17/21 07:42 Lymphocytes # (Manual) 0.9 K/mm3 (1.2-5.4) L 11/17/21 07:42 Abs React Lymphs (Man) 0.0 K/mm3 11/17/21 07:42 Monocytes # (Manual) 0.3 K/mm3 (0.0-0.8) 11/17/21 07:42 Eosinophils # (Manual) 0.0 K/mm3 (0.0-0.4) 11/17/21 07:42 Basophils # (Manual) 0.0 K/mm3 (0.0-0.1) 11/17/21 07:42 Metamyelocytes # 0.0 K/mm3 11/17/21 07:42 Myelocytes # 0.0 K/mm3 11/17/21 07:42 Promyelocytes # 0.0 K/mm3 11/17/21 07:42 Blast Cells # 0.0 K/mm3 11/17/21 07:42 WBC Morphology Not Reportable 11/17/21 07:42 Hypersegmented Neuts Not Reportable 11/17/21 07:42 Hyposegmented Neuts Not Reportable 11/17/21 07:42 Hypogranular Neuts Not Reportable 11/17/21 07:42 Smudge Cells Not Reportable 11/17/21 07:42 Toxic Granulation Not Reportable 11/17/21 07:42 Toxic Vacuolation Not Reportable 11/17/21 07:42 Dohle Bodies Not Reportable 11/17/21 07:42 Pelger-Huet Anomaly Not Reportable 11/17/21 07:42 Rekha Rods Not Reportable 11/17/21 07:42 Platelet Estimate Consistent w auto 11/17/21 07:42 Clumped Platelets Not Reportable 11/17/21 07:42 Plt Clumps, EDTA Not Reportable 11/17/21 07:42 Large Platelets Not Reportable 11/17/21 07:42 Giant Platelets Not Reportable 11/17/21 07:42 Platelet Satelliting Not Reportable 11/17/21 07:42 Plt Morphology Comment Not Reportable 11/17/21 07:42 RBC Morphology Normal 11/17/21 07:42 Dimorphic RBCs Not Reportable 11/17/21 07:42 Polychromasia Not Reportable 11/17/21 07:42 Hypochromasia Not Reportable 11/17/21 07:42 Poikilocytosis Not Reportable 11/17/21 07:42 Anisocytosis Not Reportable 11/17/21 07:42 Microcytosis Not Reportable 11/17/21 07:42 Macrocytosis Not Reportable 11/17/21 07:42 Spherocytes Not Reportable 11/17/21 07:42 Pappenheimer Bodies Not Reportable 11/17/21 07:42 Sickle Cells Not Reportable 11/17/21 07:42 Target Cells Not Reportable 11/17/21 07:42 Tear Drop Cells Not Reportable 11/17/21 07:42 Ovalocytes Not Reportable 11/17/21 07:42 Helmet Cells Not Reportable 11/17/21 07:42 Maza-[place] Bodies Not Reportable 11/17/21 07:42 [place] Rings Not Reportable 11/17/21 07:42 [place] Cells Not Reportable 11/17/21 07:42 Bite Cells Not Reportable 11/17/21 07:42 Crenated Cell Not Reportable 11/17/21 07:42 Elliptocytes Not Reportable 11/17/21 07:42 Acanthocytes (Spur) Not Reportable 11/17/21 07:42 Rouleaux Not Reportable 11/17/21 07:42 Hemoglobin C Crystals Not Reportable 11/17/21 07:42 Schistocytes Not Reportable 11/17/21 07:42 Malaria parasites Not Reportable 11/17/21 07:42 Behzad Bodies Not Reportable 11/17/21 07:42 Hem Pathologist Commnt No 11/17/21 07:42 PT 15.0 Sec. (12.2-14.9) H 11/23/21 05:53 INR 1.06 (0.87-1.13) 11/23/21 05:53 Sodium 139 mmol/L (137-145) 11/25/21 07:16 Potassium 3.8 mmol/L (3.6-5.0) D 11/25/21 07:16 Chloride 111.4 mmol/L (98-107) H 11/25/21 07:16 Carbon Dioxide 15 mmol/L (22-30) L 11/25/21 07:16 Anion Gap 16 mmol/L 11/25/21 07:16 BUN 5 mg/dL (7-17) L 11/25/21 07:16 Creatinine 0.7 mg/dL (0.6-1.2) 11/25/21 07:16 Estimated GFR > 60 ml/min 11/25/21 07:16 BUN/Creatinine Ratio 7 % 11/25/21 07:16 Glucose 129 mg/dL (65-100) H 11/25/21 07:16 POC Glucose 121 mg/dL (70-105) H 11/19/21 22:58 Calcium 8.4 mg/dL (8.4-10.2) 11/25/21 07:16 Phosphorus 3.90 mg/dL (2.5-4.5) D 11/24/21 05:14 Magnesium 1.70 mg/dL (1.7-2.3) 11/24/21 05:14 Total Bilirubin 1.00 mg/dL (0.1-1.2) 11/17/21 07:35 Direct Bilirubin 0.3 mg/dL (0-0.2) H 11/17/21 07:35 Indirect Bilirubin 0.7 mg/dL 11/17/21 07:35 AST 15 units/L (5-40) 11/17/21 07:35 ALT 8 units/L (7-56) 11/17/21 07:35 Alkaline Phosphatase 52 units/L (35-129) 11/17/21 07:35 Total Protein 8.9 g/dL (6.3-8.2) H 11/17/21 07:35 Albumin 5.3 g/dL (3.9-5) H 11/17/21 07:35 Albumin/Globulin Ratio 1.5 % 11/17/21 07:35 Lipase 13 units/L (13-60) 11/17/21 07:35 Mccallum/IV: Voiding Method Toilet Active Medications - Current Medications Current Medications: Generic Name Dose Route Start Last Admin Trade Name Freq PRN Reason Stop Dose Admin Acetaminophen 650 mg 11/17/21 11:44 11/18/21 12:06 Acetaminophen 325 Mg Tab PO 650 mg Q4H PRN Administration Pain MILD(1-3)/Fever >100.5/CRUZ Albuterol 2.5 mg 11/20/21 21:30 Albuterol 2.5 Mg/3 Ml Nebu IH Q4HRT PRN Shortness Of Breath Heparin Sodium (Porcine) 5,000 unit 11/17/21 22:00 11/26/21 10:39 Heparin 5,000 Unit/1 Ml Vial SUB-Q 5,000 unit BID EMILY Administration Hydralazine HCl 10 mg 11/19/21 21:28 11/24/21 12:44 Hydralazine 20 Mg/1 Ml Inj IV 10 mg Q6HR PRN Administration Hypertension Hydromorphone HCl 0.5 mg 11/17/21 11:44 11/25/21 22:39 Hydromorphone 1 Mg/1 Ml Inj IV 0.5 mg Q3H PRN Administration Pain , Severe (7-10) Metoclopramide HCl 5 mg 11/22/21 11:00 11/26/21 05:50 Metoclopramide 10 Mg/2 Ml Inj IV 5 mg Q6HR EMILY Administration Metoprolol Tartrate 12.5 mg 11/24/21 22:00 11/26/21 10:39 Metoprolol Tartrate 25 Mg Tab PO 12.5 mg BID EMILY Administration Morphine Sulfate 2 mg 11/17/21 11:44 11/23/21 14:32 Morphine 2 Mg/1 Ml Inj IV 2 mg Q6H PRN Administration Pain, Moderate (4-6) Pantoprazole Sodium 40 mg 11/26/21 07:30 11/26/21 09:17 Pantoprazole 40 Mg Tab PO 40 mg BIDAC EMILY Administration Promethazine HCl 25 mg 11/21/21 19:24 Promethazine 25 Mg Rect Supp [place] Q6H PRN Nausea And Vomiting Sodium Chloride 10 ml 11/17/21 12:00 11/26/21 10:40 Sodium Chloride 0.9% 10 Ml Flush Syringe IV 10 ml BID EMILY Administration Sodium Chloride 10 ml 11/17/21 11:44 Sodium Chloride 0.9% 10 Ml Flush Syringe IV PRN PRN LINE FLUSH Trazodone HCl 100 mg 11/24/21 22:00 11/25/21 22:27 Trazodone 100 Mg Tab PO 100 mg QHS EMILY Administration Nutrition/Malnutrition Assess - Dietary Evaluation Nutrition/Malnutrition Findings: Nutrition Notes Start: 11/18/21 16:04 Freq: Status: Active Protocol: Document 11/26/21 10:11 JAYCOB (Rec: 11/26/21 10:32 JAYCOB [id number]) Nutrition Notes Initial or Follow up Reassessment Current Diagnosis COPD,Small Bowel Obstruction Other Pertinent Diagnosis Gastric Ulcer. Current Diet Full Liquids Diet (since L ), D Suppl (since B 11/27). Labs/Tests 11/26: Cl 111.4, CO2 15, BUN 5 , Glu 129. Pertinent Medications 11/26: Nutritionally unremarkable. Height 5 ft 7 in Weight 51.5 kg [place] Body Weight (kg) 61.36 BMI 17.7 Weight change and time frame 0.66 Kg body weight loss in 1 week reported. Weight Status Underweight Subjective/Other Information RD consult for routine F/U on dietary advancement. Pt advanced to PO diet, now on Full Liquids Diet, Pt's PO intake of meals has been Fair (50-75%) and well tolerated, according to ADL notes. Dietary supplements are recommended once a day. Diet well tolerated, Pt had a BM and flatus overnight, no discomfort, according to Progress notes. Percent of energy/protein needs met: Prescribed Full Liquids Diet provides for energy/protein needs (1,155 Kcal/37 g) during LOS; additionally, Dietary Supplements will compensate for possible poor or insufficient PO intake of meals with 240 Kcal and 8 g of protein. Burn Absent Trauma Absent GI Symptoms None Food Allergy No Skin Integrity/Comment Assessment WNL. Current % PO Fair (50-74%) Minimum of two criteria No #1 Nutrition Diagnosis Altered GI function Comments: Diet well tolerated, Pt had a BM and flatus overnight, no discomfort, according to Progress notes. Diagnosis Progress(for reassessment Improved documentation) Is patient on ventilator? No Is Patient Ambulatory and/or Out of Bed Yes REE-([place]-St. Jeor-ambulatory/OOB) [ 1335.919 NUTR.MSJOOB] Kcal/Kg value to use for calculation 33 Approximate Energy Requirements Using 1700 kcal/Kg Calculation Used for Recommendations Kcal/kg Additional Notes Protein: 1-1.2 g/Kg IBW; 61-73 g/day. Fluids: 1 ml/Kcal, or as per MD. Nutrition Intervention Change Diet Order: Continue advancing into more PO solid foods as tolerated. Add Supplement/Snack (indicate name/kcal Continue 8 fl oz Ensure Clear: /protein ) Once a day. Provides kCal: 240 Provides Protein (gm) 8 Goal #1 Compensate, through dietary supplementation, for possible poor or insufficient PO intake of meals during LOS. Goal #2 Facilitate PO intake of meals with elemental, textural, or mechanical modification during LOS. Goal #3 Maintain body weight within +/ -3% of admission body weight during LOS. Follow-Up By: 12/03/21 Additional Comments Continue monitoring food and ONS tolerance, %PO intake of meals, and BM.
[2021-11-26 11:54] VITALS: BP 148/78
--- NOTE | 2021-11-26 15:51 | Discharge Summary ---
Providers - Providers Date of Admission: 11/18/21 10:37 Attending physician: RODNEY NATH MD 11/17/21 09:26 Consult to Physician [CONS] Stat Comment: Consulting Provider: BAYLEE TORRE Physician Instructions: Reason For Exam: SBO 11/23/21 14:27 Midline [Consult to PICC Line RN] [CONS] Routine Reason For Exam: peripheral access Type Line:: Midline 11/26/21 11:29 Speech Therapy Evaluation and Treat [CONS] Routine Reason For Exam: assess for dysphagia Primary care physician: ROD PULLER Hospitalization Condition: Stable Exam - Constitutional Vitals: Temp Pulse Resp BP Pulse Ox 98.0 F 89 18 148/78 97 11/26/21 11:13 11/26/21 11:13 11/26/21 11:13 11/26/21 11:13 11/26/21 11:13 Plan Care Plan Goals: Resolved your primary care doctor. Continue to take full liquid diet until Monday. Should you have any returns of your symptoms please report back to the emergency department. Please follow-up with Dr. Torre within 2 weeks. Follow up with: EDENILSON HAYES MD [Primary Care Provider] - 7 Days BAYLEE TORRE MD [Staff Physician] - 14 Days Prescriptions: Metoprolol [Lopressor TAB] 12.5 mg PO BID 30 Days #30 tablet
== END 2021-11-26 17:30 | disposition home or self-care (01) | DRG 389 ==
LOC: ED 06:49 → 3A 11:44 → OBSVTOIN 11-18 10:37
PROVIDERS: ADMIT Student in an Organized Health Care Education/Training Program; ATTEND Student in an Organized Health Care Education/Training Program
PROC: 0D9670Z Drainage of Stomach with Drainage Device, Via Natural or Artificial Opening (ICD-10-PCS; 2021-11-22)
PROC: 05H933Z Insertion of Infusion Device into Right Brachial Vein, Percutaneous Approach (ICD-10-PCS; principal; 2021-11-23)
DX: K56.609 Unspecified intestinal obstruction, unspecified as to partial versus complete obstruction (principal); R65.10 Systemic inflammatory response syndrome (SIRS) of non-infectious origin without acute organ dysfunction; K25.9 Gastric ulcer, unspecified as acute or chronic, without hemorrhage or perforation; D72.829 Elevated white blood cell count, unspecified; J44.9 Chronic obstructive pulmonary disease, unspecified; E83.52 Hypercalcemia; Z88.8 Allergy status to other drugs, medicaments and biological substances; G89.29 Other chronic pain; M54.9 Dorsalgia, unspecified; Z90.710 Acquired absence of both cervix and uterus; Z90.49 Acquired absence of other specified parts of digestive tract; F17.200 Nicotine dependence, unspecified, uncomplicated; Z82.49 Family history of ischemic heart disease and other diseases of the circulatory system; E87.6 Hypokalemia; E83.39 Other disorders of phosphorus metabolism
CPT/HCPCS: 36415; 74018; 74019; 74176; 74177; 80048; 80076; 82962; 83690; 83735; 84100; 84132; 85007; 85025; 85610; 94640; 99406; G0378; J3490; J7510; J9280; C9113; J0360; J1170; J1644; J1885; J2060; J2270; J2405; J2765; J3475; J3480; J7040; J7042; Q9967